=== PATIENT | female | born 1990 | race Caucasian/White ===

== ENCOUNTER → 2017-09-27 09:24 | Outpatient (CLI) | payer OTHER, SELFPAY ==
[2017-09-27 10:57] LABS: Absolute Lymphocyte Count 1.57 X10^3/ul (0.83-4.51); Absolute Neutrophil Count 5.5 X10^3/uL (2.0-7.7); Basophil# 0.01 X10^3/uL; Basophil% 0.1 % (0-1); Eosinophil# 0.02 X10^3/uL; Eosinophils% 0.3 % (0-5); Hematocrit 39.6 % (37-47); Hemoglobin 13.1 g/dl (12.0-15.0); Lymphocyte # 1.57 X10^3/ul (4.0); Lymphocyte % 20.8 % (19-41); Mean Corp Hgb Conc 33.1 g/gl (32-36); Mean Corpuscular Hgb 30.1 pg (27.0-32.0); Mean Platelet Vol. 9.6 fl (6.2-12.0); Monocyte# 0.43 X10^3/uL; Monocyte% 5.7 % (0-10); Neutrophil # 5.52 X10^3/uL (2.7-7.7); Platelet Count 350 K/mm3 (150-450); RBC Distribution Width CV 12.4 % (11.6-14.6); RBC Distribution Width SD 41.4 fl (35.1-43.9); Red Blood Count 4.35 M/mm3 (4.2-5.4); White Blood Count 7.6 K/mm3 (4.4-11.0)
[2017-09-27 11:01] LABS: POSITIVE COUNT NO; POSITIVE DIFFERENTIAL NO; POSITIVE MORPHOLOGY NO
[2017-09-27 11:23] LABS: Glucose Challenge Gest 1H 50g 128 mg/dL (70-140)
[2017-09-27 12:14] LABS: HIV - WCH Non-Reactive (Nonreactive)
[2017-09-29 03:07] LABS: HCV Quant. RNA PCR HCV Not Detected IU/mL (.)
[2017-09-29 10:15] LABS: HEPATITIS B SURFACE AG Negative (Negative)
[2017-10-04 03:47] LABS: Rapid Plasmin Reagin (RPR) NONREACTIVE (NONREACTIVE)
== END ==
PROVIDERS: Family Provider Family Medicine; PCP Family Medicine; Visit Provider Obstetrics & Gynecology
DX: Z34.90 Encounter for supervision of normal pregnancy, unspecified, unspecified trimester (principal)
CPT/HCPCS: 36415; 82950; 85025; 86592; 86703; 86762; 86850; 86900; 87340; 87522

== ENCOUNTER → 2017-09-27 18:56 | Outpatient (CLI) | payer OTHER, SELFPAY ==
[2017-09-27 22:37] LABS: Chlamydia Trachomatis by PCR Negative (Negative); Neisserai gonorrhoeae by PCR Negative (Negative); Probe Check PASS; Sample Adequacy Control PASS; Specimen Processing Control PASS
[2017-10-02 09:42] LABS: HPV Reflexed? NOT INDICATED
== END ==
PROVIDERS: Visit Provider Obstetrics & Gynecology
DX: Z34.90 Encounter for supervision of normal pregnancy, unspecified, unspecified trimester (principal); Z12.4 Encounter for screening for malignant neoplasm of cervix
CPT/HCPCS: 87086; 87491; 87591; 88175; G0145

== ENCOUNTER → 2017-10-25 | Outpatient (CLI) | payer OTHER, SELFPAY | END | disposition home or self-care (01) | PROVIDERS: Family Provider Family Medicine; PCP Family Medicine; Visit Provider Obstetrics & Gynecology | DX: Z31.5 Encounter for procreative genetic counseling (principal) | CPT/HCPCS: 36415 ==

== ENCOUNTER → 2018-02-14 12:23 | Outpatient (CLI) | payer OTHER, SELFPAY ==
[2018-02-14 13:06] LABS: Absolute Lymphocyte Count 1.86 X10^3/ul (0.83-4.51); Absolute Neutrophil Count 8.7 X10^3/uL (2.0-7.7); Basophil# 0.02 X10^3/uL; Basophil% 0.2 % (0-1); Eosinophil# 0.05 X10^3/uL; Eosinophils% 0.4 % (0-5); Hematocrit 33.1 % (37-47); Hemoglobin 10.9 g/dl (12.0-15.0); Lymphocyte # 1.86 X10^3/ul (4.0); Lymphocyte % 16.4 % (19-41); Mean Corp Hgb Conc 32.9 g/gl (32-36); Mean Corpuscular Hgb 31.7 pg (27.0-32.0); Mean Corpuscular Volume 96.2 fL (81-99); Mean Platelet Vol. 9.8 fl (6.2-12.0); Monocyte# 0.68 X10^3/uL; Neutrophil # 8.65 X10^3/uL (2.7-7.7); Neutrophil % 76.5 % (47-70); Platelet Count 340 K/mm3 (150-450); RBC Distribution Width CV 12.4 % (11.6-14.6); RBC Distribution Width SD 41.8 fl (35.1-43.9); Red Blood Count 3.44 M/mm3 (4.2-5.4); White Blood Count 11.3 K/mm3 (4.4-11.0)
[2018-02-14 13:07] LABS: POSITIVE COUNT NO; POSITIVE DIFFERENTIAL NO; POSITIVE MORPHOLOGY NO
[2018-02-14 13:28] LABS: Glucose Challenge Gest 1H 50g 121 mg/dL (70-140)
== END ==
PROVIDERS: Family Provider Family Medicine; PCP Family Medicine; Referring Provider Obstetrics & Gynecology; Visit Provider Obstetrics & Gynecology
DX: Z34.90 Encounter for supervision of normal pregnancy, unspecified, unspecified trimester (principal)
CPT/HCPCS: 36415; 82950; 85025

== ENCOUNTER → 2018-04-18 15:19 | Outpatient (CLI) | payer OTHER, SELFPAY ==
[2018-04-18 13:24] VITALS: BMI 38.4
== END ==
PROVIDERS: Family Provider Family Medicine; PCP Family Medicine; Referring Provider Obstetrics & Gynecology; Visit Provider Obstetrics & Gynecology
DX: Z34.90 Encounter for supervision of normal pregnancy, unspecified, unspecified trimester (principal)
CPT/HCPCS: 87081

== ENCOUNTER 2018-05-11 12:05 | Outpatient (CLI) | payer OTHER, SELFPAY ==
[2018-05-09 12:23] VITALS: BMI 38.4
[2018-05-11 12:29] VITALS: BMI 38.7
[2018-05-11 13:10] LABS: ROM Internal Control Test YES-OK TO RESULT pt. (Internal QC); ROM Patient Test Negative (Negative)
--- NOTE | 2018-05-14 00:47 | OB.TRI.NOTE ---
- Problem List (1) False labor Status: Acute History of Present Illness Date of Service: 05/11/18 Reason For Visit: R/O SROM History of Present Illness: co ctx questionable lof Allergies iodine Allergy (Verified 05/09/18 12:01) Other morphine Allergy (Verified 05/09/18 12:01) Other shellfish derived Allergy (Verified 05/09/18 12:01) Other - Pertinent Past Medical History Surgical History: Past Surgical History (Last Reviewed 05/09/18 @ 12:01 by Yen Davison) kidney abscess surgery Laboratory Studies: Laboratory Tests 05/11/18 Range/Units 12:30 Vag Amniotic Fld Detect Negative (Negative) NST - FHR Rate Baby A Baseline: 130 Variability:: Moderate Accelerations:: 15 x 15 Decelerations:: None NST Reactive:: Yes FHR Category:: Category I Uterine Activity:: irregular Impression/Plan false labor negative rom no cervical change dc home
== END 2018-05-11 14:30 | disposition home or self-care (01) ==
LOC: WPOUT 12:14 → WP 05-12 11:08
PROVIDERS: Family Provider Family Medicine; PCP Family Medicine; Visit Provider Obstetrics & Gynecology
DX: O47.9 False labor, unspecified (principal); Z3A.00 Weeks of gestation of pregnancy not specified
CPT/HCPCS: 59025; 59050; 84112; 99218; G0378

== ENCOUNTER 2018-05-17 14:20 | Inpatient (IN) | payer OTHER, SELFPAY ==
[2018-05-15 15:00] VITALS: BMI 39.9
[2018-05-17] MEDS: Lactated Ringers 1,000 ML 50 ML IV ×2 (14:45→18:04)
[2018-05-17 15:05] VITALS: BMI 44.7
[2018-05-17 15:26] LABS: Hematocrit 35.8 % (37-47); Hemoglobin 11.8 g/dl (12.0-15.0); Mean Corpuscular Hgb 30.6 pg (27.0-32.0); Platelet Count 314 K/mm3 (150-450); RBC Distribution Width CV 12.8 % (11.6-14.6); RBC Distribution Width SD 43.6 fl (35.1-43.9); Red Blood Count 3.85 M/mm3 (4.2-5.4); White Blood Count 8.7 K/mm3 (4.4-11.0)
[2018-05-17 15:35] LABS: Scan Indicated on CBC? Y/N NO
[2018-05-17] MEDS: Oxytocin 30 units/NS 500 ml 30 UNITS/500 ML IV.SOLN IV (16:01)
[2018-05-17] MEDS: fentaNYL-bupivacaine (epidural) 100 ML BAG EPIDURAL (17:47)
[2018-05-17] MEDS: Oxytocin 30 units/NS 500 ml 30 UNITS/500 ML IV.SOLN 334 UNITS IV (19:57)
[2018-05-17] MEDS: Oxytocin 30 units/NS 500 ml 30 UNITS/500 ML IV.SOLN 167 UNITS IV (20:27)
--- NOTE | 2018-05-17 21:34 | PCM.HP.OB ---
- Problem List (1) Term Status: Acute (2) Obesity affecting in third trimester Status: Acute Comment: nl 1 tm glucola, discussed healthy weight gain. (3) Status: Acute Qualifiers: Weeks of gestation: 39 weeks Qualified Code(s): Z3A.39 - 39 weeks gestation of Comment: genetic screening- NIPT normal. ntd carrier screening declined. anatomy scan normal. (4) Supervision of normal Status: Acute Qualifiers: Normal : other normal Trimester: third trimester Qualified Code(s): Z34.83 - Encounter for supervision of other normal , third trimester Comment: PRR VIJAY 05/16/18 girl- Sanjay Boyer Johny History Date of Admission: 05/17/18 Final VIJAY: 05/16/18 Gestational age: 40 Weeks and 1 Days History of this : This is a 27 year-old, at 40 weeks gestational age presents IOL term and favorable cervix. risks of induction were discussed with patient and she wishes to proced, her meyers score is 9. She denies any vb lof admitss good fm and irregular ctx. she has had an uncomplicated Surgical History: Surgical History (Last Reviewed 05/15/18 @ 15:00 by Yen Davison) kidney abscess surgery Allergies iodine Allergy (Verified 05/15/18 15:00) Other morphine Allergy (Verified 05/15/18 15:00) Other shellfish derived Allergy (Verified 05/15/18 15:00) Other Home Medications: Home Medications vitamin,calcium,cgjqvhhy-nbba-cohfl acid tablet 1 tab PO QDAY 09/27/17 Smoking Status: Never smoker Alcohol: None Number of Fetus(es): 1 Heart Tracin moderate variability reactive no decelerations category I tracing\ Edisto: regular History Past Pregnancies: Past Pregnancies Delivery Date Name GA/Weeks Outcome Route Weight Gender Labor Length Anesthesia Delivery Location Provider FOB 2009 Rosalind 39 iol term 6lb7o f 2 epi Labs: Mom's Labs & Results 05/17/18 05/17/18 14:45 14:45 WBC 8.7 RBC 3.85 L Hgb 11.8 L Hct 35.8 L MCV 93.0 MCH 30.6 MCHC 33.0 RDW 12.8 RDW Differential 43.6 Plt Count 314 MPV 10.0 Blood Type AB POSITIVE Antibody Screen NEGATIVE Course Did the patient receive Yes care? Labs Blood Type: AB RH: POSITIVE RPR/VDRL/Syphilis Nonreactive Rubella status Immune HbSAg Negative Date Done: 09/27/17 Chlamydia Negative Gonorrhea Negative HIV/AIDS Non-Reactive Group B Strep: Negative Current Obstetrical History Gestational Diabetes No Incompetent Cervix No Infertility No IUGR No Macrosomia No Hypertension/Pre-eclampsia No Placenta Previa/Abruption No PTL/PROM No Uterine anomaly No Oligohydramnios No Polyhydramnios No Multiple gestation No Past Medical History Asthma No Diabetes No Hypertension No Heart disease No Mitral valve prolapse No Neurologic/Seizure disorder/ No Migraines Kidney disease No Liver disease No Varicosities No Clotting disorders/Hx of DVT No Thyroid Dysfunction No Other medical diseases No Psychiatric disorders No Major trauma No Abnormal PAP smear No Sleep apnea No Mammogram in the last 2 years No Social History Marital Status: Alleged father Johny Hx Smoking No Smoking Status Never smoker Expected Delivery Method: Spontaneous Vaginal Review of Systems Constitutional: Denies: Fever, Malaise Eyes: Denies: Blurred vision, Vision Change HEENT: Denies: Head Aches, Visual Changes Cardiovascular: Denies: Chest Pain, Palpitations Respiratory: Denies: Cough, Shortness of Breath, Wheezing Gastrointestinal: Denies: Abdominal Pain, Diarrhea, Nausea, Vomiting Genitourinary: Denies: Dysuria, Hematuria Musculoskeletal: Denies: Joint Pain, Muscle pain Skin: Denies: Lesions, Rash Neurological: Denies: Blurred vision, Focal weakness, Headaches Psychiatric: Denies: Anxiety, Depression Endocrine: Denies: Heat/ Cold Intolerance Hematologic/ Lymphatic: Denies: Easy Bruising, Easy Bleeding Physical Exam General: Alert, Cooperative, No apparent distress HEENT: Atraumatic, Normocephalic. Negative for: Thyromegaly, Lymphadenopathy Cardiovascular: Regular rate Lungs: Normal air movement Abdomen: Soft, Non Tender, Gravid Neurological: Deep Tendon Reflexes 2+/4 and Symmetrical, Neuro grossly intact. Negative for: Clonus STUDENT SERVICES COUNSELOR: Normal external genitalia. Negative for: Vulvar lesions Estimated gestational size: Appropriate for gestational size Presentation: Cephalic Cervix Dilation (cm): 4.5 Station: -1 Effacement (%): 70 Assessment/Plan All Active Problems (Last Reviewed 05/15/18 @ 15:00 by Yen Still False labor (Acute) Term (Acute) Obesity affecting in third trimester (Acute) (Acute) Supervision of normal (Acute) screening encounter (Resolved) BMI 35.0-35.9,adult (Resolved) This is a 27 year-old, at 40 weeks gestational age presents IOL term maternal request Patient presents IOL, plan expectant management for , pitocin/AROM done- clear Pain management: plans epidural GBS negative Management of any complications: none I have reviewed the [facility] and made any clinically relevant updates.
--- NOTE | 2018-05-17 21:34 | PCM.OB.VAG ---
- Problem List (1) Term Status: Acute (2) Obesity affecting in third trimester Status: Acute Comment: nl 1 tm glucola, discussed healthy weight gain. (3) Status: Acute Qualifiers: Weeks of gestation: 39 weeks Qualified Code(s): Z3A.39 - 39 weeks gestation of Comment: genetic screening- NIPT normal. ntd carrier screening declined. anatomy scan normal. (4) Supervision of normal Status: Acute Qualifiers: Normal : other normal Trimester: third trimester Qualified Code(s): Z34.83 - Encounter for supervision of other normal , third trimester Comment: PRR VIJAY 05/16/18 girl- Sanjay Boyer Johny Vaginal Delivery Maternal Presentation: Elective Induction Method of Induction: Pitocin, Amniotomy Amniotic Membrane Rupture Type: Artificial Amniotic Fluid Description: Clear Final VIJAY: 05/16/18 Gestational age: 40 Weeks and 1 Days Date of Procedure: 05/17/18 Pre-Operative Diagnosis: iol social Post-Operative Diagnosis: same Surgery/ Procedure Performed: Spontaneous Vaginal Delivery Type of Anesthesia: Epidural Description of Procedure: Patient began pushing and delivered the head in the ARIC presentation. The head was delivered atraumatically. The anterior and posterior shoulders delivered after a 15 second mild shoulder dystocia that was resolved with position change and daryl, and without complication the rest of the infant and the infant was placed on the maternal abdomen. Delayed cord clamping was employed for approximately 60 seconds. Cord was clamped and cut and gentle traction was applied to the cord and the placenta delivered spontaneously immediately following it was noted to be intact with three-vessel cord. The perineum and vagina were inspected and noted to have no laceration. Patient and infant tolerated delivery well. A gender: Female Episiotomy Description: None Laceration: None Medications given after delivery: IV Pitocin Complications: - - mild shoulder dystocia- safe for future as long as EFW not any greater than present weight
[2018-05-18 02:51] VITALS: BP 112/63; PULSE 97; RESP 18; TEMP 36.6
--- NOTE | 2018-05-18 02:55 | NURSING ---
0251- pt states she is feeling a little burning w voiding, enc use of steffen bottle while voiding to help ease
[2018-05-18] MEDS: Naproxen 250 MG Tablet PO ×2 (07:06→16:00)
[2018-05-18 08:00] VITALS: BP 111/62; PULSE 79; RESP 16; TEMP 36.4; O2SAT 97
[2018-05-18 12:25] VITALS: BP 124/78; PULSE 78; RESP 18; TEMP 36.8; O2SAT 99
--- NOTE | 2018-05-18 13:27 | PCM.PN.OB ---
Patient Problems: Active and Suspected Problems (Last Reviewed 05/15/18 @ 15:00 by Yen Davison) Term (Acute) Subjective: doing well no complaints pain controlled no CP SOB N V ambulating well tolerating po lochia moderate, going well - Physical Exam General: Alert, Oriented x3 Vital Signs Temp Pulse Resp BP Pulse Ox 98.2 F 78 18 124/78 H 99 05/18/18 12:25 05/18/18 12:25 05/18/18 12:25 05/18/18 12:25 05/18/18 12:25 Oxygen Delivery Method Room Air Weight: 234 lb 12.677 oz Body Mass Index (BMI) 44.7 Intake and Output for Last 24 Hours 05/16/18 05/17/18 05/18/18 23:59 23:59 23:59 Intake Total 1704 / 1704 Output Total 650 / 650 300 / 300 Balance 1054 / 1054 -300 / -300 Laboratory Tests Past 24 Hrs 05/17/18 05/17/18 14:45 14:45 WBC 8.7 RBC 3.85 L Hgb 11.8 L Hct 35.8 L MCV 93.0 MCH 30.6 MCHC 33.0 RDW 12.8 RDW Differential 43.6 Plt Count 314 MPV 10.0 Blood Type AB POSITIVE Antibody Screen NEGATIVE Medical Necessity - Tobacco Use Smoking Status: Never smoker Assessment/Plan All Active Problems (Last Reviewed 05/15/18 @ 15:00 by Yen Davison) False labor (Acute) Term (Acute) Obesity affecting in third trimester (Acute) (Acute) Supervision of normal (Acute) screening encounter (Resolved) BMI 35.0-35.9,adult (Resolved) s/p PPD # 1 1. routine post delivery care 2. breast feeding- support given 3. rh positive 4. rubella immune
[2018-05-18 15:50] VITALS: BP 122/80; PULSE 85; RESP 18; TEMP 36.7; O2SAT 99
[2018-05-18 19:46] VITALS: BP 119/77; PULSE 93; RESP 16; TEMP 36.9; O2SAT 99
--- NOTE | 2018-05-18 21:38 | PCM.DCVAG ---
Discharge Diet: No Restrictions Discharge Activity: Return to Normal Activity, May not drive while taking narcotic pain medications., May Shower May resume sexual activity in: 4-6 weeks Call your doctor if your incision/area has: Continuous Slow Oozing, Sudden Increased Bleeding, Increased Pain/ Swelling, Increased Redness, Foul Smelling Discharge Additional Instructions: If you experience any of the following, contact your healthcare provider. Bleeding that soaks a pad every hour for 2 hours Fever 100.4 or higher Unrelieved incision or abdominal pain Swelling, redness, discharge or bleeding from your incision or episiotomy site Your incision begins to separate Problems urinating (including inability to urinate or burning while urinating). Visual changes Severe headache Flu-like symptoms Pain or redness in one of both of your breasts Pain, warmth, tenderness or swelling in your legs, especially the calf area Frequent nausea and vomiting Symptoms of depression or anxiety If you experience any of the following, call 911 or go to the nearest Emergency Room. Chest pain Problems breathing Seizure activity Partial or complete paralysis of a body part, slurred speech, weakness or drooping of the face, or a sudden inability to walk or hold your balance Allergies/Adverse Reactions: Allergies iodine Allergy (Verified 05/15/18 15:00) Other morphine Allergy (Verified 05/18/18 08:07) Other cardiac arrest - as infant shellfish derived Allergy (Verified 05/15/18 15:00) Other Medications to take at Discharge vitamin,calcium,uheezdql-ezhn-lsbju acid tablet 1 tab PO QDAY 09/27/17 Please Follow Up With: Mari Gay MD - [phone] When: Call to make an appointment with your doctor in 6 weeks. If you had elevated Blood pressure or 4th degree laceration you will need to be seen in 2 weeks. Primary Care Physician: Chemo Roque MD [Primary Care Provider] - Test Results: Test results from this visit will be discussed in further detail at your follow-up appointment, if applicable.
--- NOTE | 2018-05-18 21:39 | DCINST_ITS ---
Discharge Diet: No Restrictions Discharge Activity: Return to Normal Activity, May not drive while taking narcotic pain medications., May Shower May resume sexual activity in: 4-6 weeks Call your doctor if your incision/area has: Continuous Slow Oozing, Sudden Increased Bleeding, Increased Pain/ Swelling, Increased Redness, Foul Smelling Discharge Additional Instructions: If you experience any of the following, contact your healthcare provider. * Bleeding that soaks a pad every hour for 2 hours * Fever 100.4 or higher * Unrelieved incision or abdominal pain * Swelling, redness, discharge or bleeding from your incision or episiotomy site * Your incision begins to separate * Problems urinating (including inability to urinate or burning while urinating). * Visual changes * Severe headache * Flu-like symptoms * Pain or redness in one of both of your breasts * Pain, warmth, tenderness or swelling in your legs, especially the calf area * Frequent nausea and vomiting * Symptoms of depression or anxiety If you experience any of the following, call 911 or go to the nearest Emergency Room. * Chest pain * Problems breathing * Seizure activity * Partial or complete paralysis of a body part, slurred speech, weakness or drooping of the face, or a sudden inability to walk or hold your balance Allergies/Adverse Reactions: Allergies iodine Allergy (Verified 05/15/18 15:00) Other morphine Allergy (Verified 05/18/18 08:07) Other cardiac arrest - as shellfish derived Allergy (Verified 05/15/18 15:00) Other Medications to take at Discharge vitamin,calcium,xzholpjz-upbp-oapdu acid tablet 1 tab PO QDAY 09/27/17 Please Follow Up With: Mari Gay MD - [phone] When: Call to make an appointment with your doctor in 6 weeks. If you had elevated Blood pressure or 4th degree laceration you will need to be seen in 2 weeks. Primary Care Physician: Chemo Roque MD [Primary Care Provider] - Test Results: Test results from this visit will be discussed in further detail at your follow- up appointment, if applicable.
[2018-05-19 02:20] VITALS: BP 111/67; PULSE 81; RESP 20; TEMP 36.4
--- NOTE | 2018-05-19 07:43 | PCM.PN.OB ---
Patient Problems: Active and Suspected Problems (Last Reviewed 05/15/18 @ 15:00 by Yen Davison) Term (Acute) Subjective: Doing well. No CP, SOB. Baby's bilirubin trending down so plans home today. - Physical Exam General: Alert, Oriented x3 Abdomen: Soft, Non Tender, - - FF below U Vital Signs Temp Pulse Resp BP Pulse Ox 97.6 F L 81 20 H 111/67 99 05/19/18 02:20 05/19/18 02:20 05/19/18 02:20 05/19/18 02:20 05/18/18 19:46 Oxygen Delivery Method Room Air Weight: 234 lb 12.677 oz Body Mass Index (BMI) 44.7 Intake and Output for Last 24 Hours 05/17/18 05/18/18 05/19/18 23:59 23:59 23:59 Intake Total 1704 / 1704 Output Total 650 / 650 300 / 300 Balance 1054 / 1054 -300 / -300 Medical Necessity - Tobacco Use Smoking Status: Never smoker Assessment/Plan All Active Problems (Last Reviewed 05/15/18 @ 15:00 by Yen Davison) False labor (Acute) Term (Acute) Obesity affecting in third trimester (Acute) (Acute) Supervision of normal (Acute) screening encounter (Resolved) BMI 35.0-35.9,adult (Resolved) PPD #2: Routine care. . Home today
[2018-05-19 08:25] VITALS: BP 117/70; PULSE 80; RESP 16; TEMP 36.3
--- NOTE | 2018-05-29 13:25 | NURSING ---
Follow up phone call left voice mail
== END 2018-05-19 10:00 | disposition home or self-care (01) | DRG 807 ==
PROVIDERS: Admitting Provider Obstetrics & Gynecology; Family Provider Family Medicine; PCP Family Medicine; Referring Provider Obstetrics & Gynecology; Visit Provider Obstetrics & Gynecology
DX: O66.0 Obstructed labor due to shoulder dystocia (principal); Z37.0 Single live birth; O99.214 Obesity complicating childbirth; Z3A.40 40 weeks gestation of pregnancy
CPT/HCPCS: 59025; 59050; 85027; 86850; 86900; 99218; J7120; G0378

== ENCOUNTER → 2019-12-14 14:43 | Outpatient (CLI) | payer OTHER, SELFPAY ==
[2019-12-14 11:51] VITALS: BMI 44.7
[2019-12-14 17:35] LABS: Amphetamine Urine VISTA NEGATIVE (<1000 ng/mL); Barbiturate Urine VISTA NEGATIVE (< 200 ng/mL); Benzodiazepine Urine VISTA NEGATIVE (< 200 ng/mL); Cocaine Urine VISTA NEGATIVE (< 300 ng/mL); Ecstacy Urine VISTA NEGATIVE (< 500 ng/mL); Methadone Urine VISTA NEGATIVE (< 300 ng/mL); PCP Urine VISTA NEGATIVE (< 25 ng/mL); THC Urine VISTA NEGATIVE (< 50 ng/mL); Vista UDS pH Range 5
[2019-12-17 09:04] LABS: Chlamydia By Nucleic Acid AMP Negative (Negative)
[2019-12-17 09:17] LABS: Gonococcus By Nucleic Acid AMP Negative (Negative)
== END ==
PROVIDERS: PCP Family Medicine; Referring Provider Obstetrics & Gynecology; Visit Provider Obstetrics & Gynecology
DX: Z34.90 Encounter for supervision of normal pregnancy, unspecified, unspecified trimester (principal)
CPT/HCPCS: 80307; 87086; 87088; 87491; 87591

== ENCOUNTER → 2020-01-07 11:33 | Outpatient (CLI) | payer OTHER, SELFPAY ==
[2019-12-14 11:51] VITALS: BMI 44.7
[2020-01-07 12:47] LABS: Absolute Neutrophil Count 6.3 X10^3/uL (2.0-7.7); Basophil# 0.04 X10^3/uL; Basophil% 0.4 % (0-1); Eosinophils% 1.1 % (0-5); Hematocrit 37.9 % (37-47); Hemoglobin 12.6 g/dL (12.0-15.0); Lymphocyte % 22.2 % (19-41); Mean Corp Hgb Conc 33.2 g/dL (32-36); Mean Corpuscular Hgb 31.1 pg (27.0-32.0); Mean Corpuscular Volume 93.6 fL (81-99); Mean Platelet Vol. 10.1 fl (6.2-12.0); Monocyte# 0.94 X10^3/uL; Monocyte% 9.9 % (0-10); NRBC Flagged by Analyzer 0 % (0-5); Neutrophil # 6.27 X10^3/uL (2.7-7.7); Neutrophil % 66.2 % (47-70); Platelet Count 354 K/mm3 (150-450); RBC Distribution Width CV 12.3 % (11.6-14.6); RBC Distribution Width SD 42.5 fl (35.1-43.9); Red Blood Count 4.05 M/mm3 (4.2-5.4); White Blood Count 9.5 K/mm3 (4.4-11.0)
[2020-01-07 13:30] LABS: Glucose Challenge Gest 1H 50g 92 mg/dL (70-140)
[2020-01-07 14:00] LABS: HIV - WCH Non-Reactive (Nonreactive); Hepatitis B Surface Antigen Non-Reactive (Nonreactive); Hepatitis C Antibody Non-Reactive (Nonreactive); Rubella IgG 24.9 IU/mL
[2020-01-14 02:04] LABS: Rapid Plasmin Reagin (RPR) NONREACTIVE (NONREACTIVE)
== END ==
PROVIDERS: Referring Provider Obstetrics & Gynecology; Visit Provider Obstetrics & Gynecology
DX: Z34.90 Encounter for supervision of normal pregnancy, unspecified, unspecified trimester (principal)
CPT/HCPCS: 36415; 82950; 85025; 86592; 86703; 86762; 86803; 86850; 86900; 86901; 87340

== ENCOUNTER → 2020-01-11 10:15 | Outpatient (CLI) | payer OTHER, SELFPAY ==
[2020-01-11 09:49] VITALS: BMI 44.7
[2020-01-11 11:19] LABS: NATERA MAILED SPECIMEN
== END ==
PROVIDERS: Referring Provider Obstetrics & Gynecology; Visit Provider Obstetrics & Gynecology
DX: Z34.90 Encounter for supervision of normal pregnancy, unspecified, unspecified trimester (principal)
CPT/HCPCS: 36415

== ENCOUNTER → 2020-04-19 10:52 | Outpatient (CLI) | payer OTHER, SELFPAY ==
[2020-03-25 13:11] VITALS: BMI 37.3
[2020-04-19 11:34] LABS: Absolute Lymphocyte Count 1.53 X10^3/uL (0.83-4.51); Absolute Neutrophil Count 6.7 X10^3/uL (2.0-7.7); Basophil# 0.03 X10^3/uL; Basophil% 0.3 % (0-1); Eosinophil# 0.03 X10^3/uL; Eosinophils% 0.3 % (0-5); Hematocrit 34.7 % (37-47); Hemoglobin 11.1 g/dL (12.0-15.0); Lymphocyte # 1.53 X10^3/ul (4.0); Lymphocyte % 17.2 % (19-41); Mean Corpuscular Hgb 31.6 pg (27.0-32.0); Mean Corpuscular Volume 98.9 fL (81-99); Mean Platelet Vol. 9.8 fl (6.2-12.0); Monocyte# 0.59 X10^3/uL; Monocyte% 6.6 % (0-10); NRBC Flagged by Analyzer 0 % (0-5); Neutrophil # 6.68 X10^3/uL (2.7-7.7); Platelet Count 299 K/mm3 (150-450); RBC Distribution Width CV 12.4 % (11.6-14.6); RBC Distribution Width SD 45.1 fl (35.1-43.9); Red Blood Count 3.51 M/mm3 (4.2-5.4); White Blood Count 8.9 K/mm3 (4.4-11.0)
[2020-04-19 11:58] LABS: Glucose Challenge Gest 1H 50g 98 mg/dL (70-140)
== END ==
PROVIDERS: Referring Provider Obstetrics & Gynecology; Visit Provider Obstetrics & Gynecology
DX: O09.90 Supervision of high risk pregnancy, unspecified, unspecified trimester (principal); Z3A.00 Weeks of gestation of pregnancy not specified; Z13.1 Encounter for screening for diabetes mellitus
CPT/HCPCS: 36415; 82950; 85025

== ENCOUNTER → 2020-06-17 12:45 | Outpatient (CLI) | payer OTHER, SELFPAY ==
[2020-06-17 11:01] VITALS: BMI 39.9
== END ==
PROVIDERS: Referring Provider Obstetrics & Gynecology; Visit Provider Obstetrics & Gynecology
DX: O09.90 Supervision of high risk pregnancy, unspecified, unspecified trimester (principal); Z3A.00 Weeks of gestation of pregnancy not specified
CPT/HCPCS: 87081

== ENCOUNTER → 2020-06-29 12:27 | Outpatient (CLI) | payer OTHER, SELFPAY ==
[2020-06-28 11:02] VITALS: BMI 37.3
[2020-06-29 12:48] LABS: Protein, Urine (Random) 27.7 mg/dL (<11.9); Protein:Creat Ratio 119 mg/g CRE (0-200)
[2020-06-29 13:30] LABS: Absolute Neutrophil Count 7.6 X10^3/uL (2.0-7.7); Basophil# 0.03 X10^3/uL; Basophil% 0.3 % (0-1); Eosinophil# 0.06 X10^3/uL; Eosinophils% 0.6 % (0-5); Hematocrit 33.8 % (37-47); Hemoglobin 11.2 g/dL (12.0-15.0); Mean Corp Hgb Conc 33.1 g/dL (32-36); Mean Corpuscular Hgb 31.1 pg (27.0-32.0); Mean Corpuscular Volume 93.9 fL (81-99); Mean Platelet Vol. 9.3 fl (6.2-12.0); Monocyte# 0.89 X10^3/uL; Monocyte% 8.4 % (0-10); NRBC Flagged by Analyzer 0 % (0-5); Platelet Count 315 K/mm3 (150-450); RBC Distribution Width CV 11.8 % (11.6-14.6); RBC Distribution Width SD 40.7 fl (35.1-43.9); White Blood Count 10.6 K/mm3 (4.4-11.0)
[2020-06-29 13:46] LABS: ALB/GLOB Ratio 0.6 RATIO (0.9-2.4); AST(SGOT) 9 U/L (15-37); Alanine Aminotransfer ALT/SGPT 14 U/L (13-56); Albumin, Serum 2.7 g/dL (3.2-5.0); Alkaline Phosphatase 85 U/L (45-117); Anion Gap 7 (5-15); BUN 9 mg/dL (7-18); BUN/Creat Ratio 13.4 RATIO (10-20); Chloride 106 mmol/L (98-107); Creatinine, Serum 0.67 mg/dL (0.55-1.02); EST Glomerular Filtration Rate 111 mL/min (>60); Est Glom Filt Rate - Afr Amer 135 mL/min (>60); Globulin 4.5 g/dL (2.2-4.2); Glucose 83 mg/dL (74-106); Potassium 3.9 mmol/L (3.5-5.1); Protein, Total 7.2 g/dL (6.4-8.2); Sodium Level 137 mmol/L (136-145)
== END ==
LOC: LABSPEC 12:27 → LAB 13:16
PROVIDERS: Referring Provider Obstetrics & Gynecology; Visit Provider Obstetrics & Gynecology
DX: Z34.90 Encounter for supervision of normal pregnancy, unspecified, unspecified trimester (principal)
CPT/HCPCS: 36415; 80053; 82570; 84156; 85025

== ENCOUNTER 2020-07-01 13:50 | Inpatient (IN) | payer OTHER, SELFPAY ==
[2020-07-01] VITALS (8 sets, daily range): BP systolic 103–122; BP diastolic 60–73; PULSE 82–102; TEMP 36.8–37.1; O2SAT 97–99; BMI 40.1
[2020-07-01 17:32] LABS: Absolute Lymphocyte Count 2.19 X10^3/uL (0.83-4.51); Absolute Neutrophil Count 8.3 X10^3/uL (2.0-7.7); Basophil# 0.03 X10^3/uL; Basophil% 0.3 % (0-1); Eosinophil# 0.06 X10^3/uL; Eosinophils% 0.5 % (0-5); Hematocrit 31.9 % (37-47); Hemoglobin 10.6 g/dL (12.0-15.0); Lymphocyte # 2.19 X10^3/ul (4.0); Lymphocyte % 18.7 % (19-41); Mean Corp Hgb Conc 33.2 g/dL (32-36); Mean Corpuscular Hgb 31.5 pg (27.0-32.0); Mean Corpuscular Volume 94.7 fL (81-99); Mean Platelet Vol. 9.6 fl (6.2-12.0); Monocyte# 1.02 X10^3/uL; Monocyte% 8.7 % (0-10); NRBC Flagged by Analyzer 0 % (0-5); Neutrophil # 8.33 X10^3/uL (2.7-7.7); Platelet Count 296 K/mm3 (150-450); RBC Distribution Width CV 11.8 % (11.6-14.6); RBC Distribution Width SD 40.9 fl (35.1-43.9); Red Blood Count 3.37 M/mm3 (4.2-5.4); White Blood Count 11.7 K/mm3 (4.4-11.0)
[2020-07-01] MEDS: 0.9% Normal Saline Single 100 ML IV.SOLN. INTRA-UTER (20:26)
[2020-07-01] MEDS: Lactated Ringers 1,000 ML 50 ML IV (20:27)
[2020-07-01] MEDS: Oxytocin 30 units/NS 500 ml 30 UNITS/500 ML IV.SOLN IV (20:30)
[2020-07-02] VITALS (50 sets, daily range): BP systolic 103–129; BP diastolic 58–87; PULSE 71–105; RESP 16–18; TEMP 36.3–37.2; O2SAT 97–100
--- NOTE | 2020-07-02 01:30 | HP.PCM_ITS ---
- Problem List (1) Encounter for induction of labor Status: Acute (2) 36 weeks gestation of Status: Acute Comment: GBS negative. electronic covid test ordered 06/17/20 (scheduled 07/01/20 at 1420) (3) H/O shoulder dystocia in prior , currently Status: Acute Comment: mild. recommend delivery by 39 weeks. (4) Depression affecting Status: Acute Comment: no meds, encouraged counseling (5) Status: Acute Qualifiers: Comment: low risk decline carrier and declined ntd screening. Anatomy nl (6) Supervision of high-risk Status: Acute Qualifiers: Comment: PRR VIJAY 07/15/20 PC Rosalind Grace Johny (7) Oligohydramnios Status: Acute Comment: plan IOL pit/fb. epi PRN. GBS neg History and Physical Date of Admission: 07/01/20 Intake Vital Signs 07/01/20 Height 5 ft 4 in 07/01/20 Weight: 234 lb 07/01/20 BMI 40.1 07/01/20 BP 126/70 H Intake Visit Reasons: 38WK OB Community Pharmacist Required: No Is patient in pain?: No Allergies iodine Allergy (Verified 07/01/20 14:20) Other morphine Allergy (Verified 07/01/20 14:20) Other shellfish derived Allergy (Verified 07/01/20 14:20) Other Medications prenat.vits,porsche,hnw-eokq-igdlz 1 tab PO QDAY 09/27/17 [History Confirmed 07/01/20] Last Menstral Period: 10/09/19 Zika: Zika virus screening: Negative : No PFSH PFSH Surgical History kidney abscess surgery (Acute) Family History Grandfather Heart disease Father Heart disease Social History (Updated 07/02/20 @ 01:[address] Mari Gay MD) Smoking Status: Never smoker alcohol intake: former substance use type: does not use caffeine: Yes what type of physical activity do you participate in: walking seatbelt use: always do you feel safe at home: Yes additional social history: [employer] Patient works at [employer] Pregancy History 3 Elective abortions Hx Para 2 Spontaneous abortions Hx # Term Pregnancies Ectopic pregnancies Hx # Pregnancies Multiple births # of living children 2 Past Pregnancies Del. Date Name GA/Weeks Outcome Route Bth Weight Infant Gen Labor Lgth Anesthesia Del Locatn Provider FOB Unknown 2009 Rosalind 40 live - full term 6lbs 7oz Female Lang 05/17/18 Deepa Hidalgo 40 live - full term 8lbs 13.8oz Female epidural [facility] Johny HPI 38WK OB : Details: BELINDA ROMERO is a 30 year old who presents for routine OB visit. upon evaluation patient was diagnosed with oligohydramnios with an JAYNA of 1 cm. The decision was made for IOL. OB Visit VIJAY Calculator Estimated Delivery Date Method Current WG Current Estimate 07/15/20 LMP (Certain) 38w 1d Other Estimates 07/16/20 Ultrasound #1 38w 0d Expected Delivery Route/Plan Labor Preferences- CB/BF classes: no labor support person: Johny labor intervention preferences: open to standard interventions pain management options preferred: epidural cut cord/dad catch: cord : [] PP control planned: [] discussed possible routes of delivery and associated risks: [] special requests: [] Specific Issue/Plans flu vaccine: given tdap vaccine: given rhogam: na LARC form signed: declined movement and labor precautions reviewed. Problem list reviewed and updated with the most current plan of care details and appropriate orders placed. Relevant counseling for the gestational age provided. Continue routine care and follow up unless otherwise noted in visit notes/problem list details Initial Weight: 205 lb Date EGA Weight BP Urine Prot Glucose FHR FuHt Pres Dilation Effaced St Visit Note 12/14/19 9w 3d 208 lb (+3 lb) 120/84 170 SM- CRL 2 cm cons with LMP 01/11/20 13w 3d 207 lb (+2 lb) 104/80 Negative Negative 157 GP - no cramping, LOF, VB. Genetic testing today. Anatomy with cMFM ordered. 02/08/20 17w 3d 209 lb 2 oz (+4 lb 2 oz) 116/78 Negative Negative 153 MH-NO VB, LOF. Starting to feel flutters. Low risk NIPT. Nausea gone. 03/25/20 24w 0d 217 lb 8 oz (+12 lb 8 oz) 110/72 Negative Negative 145 24 SM- no vb lof good fm no reuglar ctx, fu anatomy scan 04/22/20 28w 0d 223 lb 8 oz (+18 lb 8 oz) 108/80 Negative Negative 155 28 GP - no ctx, LOF, VB, DFM, ctx. 28w labs reviewed and are normal. 05/06/20 30w 0d 225 lb (+20 lb) 114/80 140 30 GP - no LOF, VB, DFM, ctx. LARC form signed. 05/20/20 32w 0d 228 lb (+23 lb) 106/72 Negative Negative 140 32 SM- no vb lof good fm no regular ctx 06/03/20 34w 0d 232 lb (+27 lb) 110/82 Negative Negative 140 34 SM- no vb lof good fm no regular ctx 06/17/20 36w 0d 232 lb 6 oz (+27 lb 6 oz) 102/72 Negative Negative 150 36 Cephalic 1 50 -3 GP - no LOF, VB, DFM, ctx. Discussed labor preferences. GBS done today. 06/24/20 37w 0d 110/84 150 36 Cephalic 1 50 -3 SM- no vb lof good fm no regular ctx 07/01/20 38w 0d 234 lb (+29 lb) 126/70 Negative Negative 145 35 Cephalic 1 50 -3 SM- no vb questionable LOF, good fm, decreased fundal height- jayna done and 1 cm ACOG First Trimester First Trimester: Desire for , Alcohol, Tobacco Cessation, Illicit/Recreational Drug/Substance Use, Intimate Partner Violence, Barriers to care, Unstable Housing, Communication Barriers, Environmental/Work Hazards, Anticipated Course of Care, Toxoplasmosis Precations, Use of Any medications, Sexual activity, Exercise, Dental Care, Sauna/Hot tub use, Seat Belt use, Childbirth classes/Hospital facilities, , Travel, Indications for US and Screening for Aneuploidy Second Trimester Second Trimester: Signs and Symptoms of Labor, Selecting a care provider, Reproductive Life Planning, Care Planning, Tobacco Cessation, Depression/Anxiety and Intimate Partner Violence Third Trimester Third Trimester: Pain Management Plans, Labor support person(s), Immediate Larc and Movement Monitoring; discussed Trial of Labor after Counseling or discussed Circumcision preference Diagnostics Diagnostics Diagnostics Blood Type AB POSITIVE 07/01/20 Antibody Screen NEGATIVE 07/01/20 Glucose 1 Hr 50 gm 98 mg/dL (70-140) 04/19/20 Hgb 10.6 g/dL (12.0-15.0) L 07/01/20 Hct 31.9 % (37-47) L 07/01/20 Details: HIV: Urine Culture: Sequential Screen: NIPT Screen: ROS Const Reports system reviewed and no additional complaints, except as docu Card Reports system reviewed and no additional complaints, except as docu Resp Reports system reviewed and no additional complaints, except as docu GI Reports system reviewed and no additional complaints, except as docu, Reports nausea Reports system reviewed and no additional complaints, except as docu Musc Reports system reviewed and no additional complaints, except as docu Exam Const General: cooperative, healthy appearing, comfortable, anxious HENMT Head: normal to inspection Nose: external nose normal Face and sinus: normal facial exam Neck Neck: normal visual inspection, full ROM, no lymphadenopathy Thyroid: thyroid normal Chest Chest palpation & inspection: normal inspection of the chest Resp Effort & Inspection: normal respiratory effort GI Inspection: normal to inspection Palpation: soft, other (gravid uterus) Other: infant vertex and appropriate size for gestational age Other: Cervical Exam: Extrem General: pedal edema Results POC Urinalysis 2 Dip (Clinic) Office Urine Glucose Negative Last Edit by Judy Foss on 07/01/20 11:42 Office Urine Protein Negative Last Edit by Judy Foss on 07/01/20 11:42 Assessment & Plan Problems 1. Oligohydramnios O41.00X0 plan IOL pit/fb. epi PRN. GBS neg 2. 36 weeks gestation of Z3A.36 GBS negative. electronic covid test ordered 06/17/20 (scheduled 07/01/20 at 1420) 3. H/O shoulder dystocia in prior , currently O09.299 mild. recommend delivery by 39 weeks. 4. Depression affecting O99.340; F32.9 no meds, encouraged counseling 5. Z34.90 low risk decline carrier and declined ntd screening. Anatomy nl 6. Supervision of high-risk O09.90 PRR VIJAY 07/15/20 Rosalind Laboy Johny
[2020-07-02] MEDS: Lactated Ringers 500 ML 999 ML IV (01:45)
[2020-07-02] MEDS: Lactated Ringers 1,000 ML 200 ML IV (02:13)
[2020-07-02] MEDS: fentaNYL-bupivacaine (epidural) 100 ML BAG EPIDURAL (03:10)
[2020-07-02] MEDS: Oxytocin 30 units/NS 500 ml 30 UNITS/500 ML IV.SOLN 334 UNITS IV (04:42)
[2020-07-02] MEDS: Methylergonovine 0.2 MG/ML Ampul IM (05:30)
--- NOTE | 2020-07-02 05:52 | PCM.OPRPT ---
Problem List (1) Encounter for induction of labor Status: Acute (2) 36 weeks gestation of Status: Acute Comment: GBS negative. electronic covid test ordered 06/17/20 (scheduled 07/01/20 at 1420) (3) H/O shoulder dystocia in prior , currently Status: Acute Comment: mild. recommend delivery by 39 weeks. (4) Depression affecting Status: Acute Comment: no meds, encouraged counseling (5) Status: Acute Qualifiers: Comment: low risk decline carrier and declined ntd screening. Anatomy nl (6) Supervision of high-risk Status: Acute Qualifiers: Comment: PRR VIJAY 07/15/20 PC Rosalind Grace Johny (7) Oligohydramnios Status: Acute Comment: plan IOL pit/fb. epi PRN. GBS neg Vaginal Delivery Maternal Presentation: Medically Indicated Induction iol oligo 38 Amniotic Membrane Rupture Type: Artificial Amniotic Fluid Description: Clear Final VIJAY: 07/15/20 Gestational age: 38 Weeks and 1 Days Date of Procedure: 07/02/20 Pre-Operative Diagnosis: iol oligo Post-Operative Diagnosis: same Surgery/ Procedure Performed: Spontaneous Vaginal Delivery Type of Anesthesia: Epidural Description of Procedure: Patient began pushing and delivered the head in the ARIC presentation. The head was delivered atraumatically . The anterior and posterior shoulders delivered without complication followed by the rest of the and the infant was placed on the maternal abdomen. Delayed cord clamping was employed for approximately 60 seconds. Cord was clamped and cut and gentle traction was applied to the cord and the placenta delivered spontaneously immediately following it was noted to be intact with three-vessel cord. The perineum and vagina were inspected and noted to have no laceration. EBL was 50 cc. Patient and infant tolerated delivery well. Presentation: ARIC Placental Delivery Description: Spontaneous Placenta Disposition: [facility] Cord Vessel Description: 3 Vessels Cord Entanglement: None Estimated Blood Loss: 50 Infant A gender: Female Episiotomy Description: None Laceration: None Medications given after delivery: IV Pitocin Complications: None Multi Select Codes - Urinary/Genital Urinary/Genital CPT Codes: 19062 Vaginal Delivery [facility]
--- NOTE | 2020-07-02 05:54 | DCINST_ITS ---
Discharge Diet: No Restrictions Discharge Activity: Return to Normal Activity, May not drive while taking narcotic pain medications., May Shower May resume sexual activity in: 4-6 weeks Call your doctor if your incision/area has: Continuous Slow Oozing, Sudden Increased Bleeding, Increased Pain/ Swelling, Increased Redness, Foul Smelling Discharge Additional Instructions: If you experience any of the following, contact your healthcare provider. * Bleeding that soaks a pad every hour for 2 hours * Fever 100.4 or higher * Unrelieved incision or abdominal pain * Swelling, redness, discharge or bleeding from your incision or episiotomy site * Your incision begins to separate * Problems urinating (including inability to urinate or burning while urinating). * Visual changes * Severe headache * Flu-like symptoms * Pain or redness in one of both of your breasts * Pain, warmth, tenderness or swelling in your legs, especially the calf area * Frequent nausea and vomiting * Symptoms of depression or anxiety If you experience any of the following, call 911 or go to the nearest Emergency Room. * Chest pain * Problems breathing * Seizure activity * Partial or complete paralysis of a body part, slurred speech, weakness or drooping of the face, or a sudden inability to walk or hold your balance Allergies/Adverse Reactions: Allergies iodine Allergy (Verified 07/01/20 14:20) Other morphine Allergy (Verified 07/01/20 14:20) Other cardiac arrest - as infant shellfish derived Allergy (Verified 07/01/20 14:20) Other Medications to take at Discharge prenat.vits,porsche,[id number] 1 tab PO QDAY 09/27/17 Naproxen [Naprosyn] 250 - 500 mg PO Q8H PRN PRN #30 tab 07/02/20 The following prescriptions were given: Naproxen [Naprosyn] 250 - 500 mg PO Q8H PRN PRN #30 tab PRN Reason: MILD PAIN Transmission Status: Pending to [facility] Please Follow Up With: Mari Gay MD - [phone] When: Call to make an appointment with your doctor in 6 weeks. If you had elevated Blood pressure or 4th degree laceration you will need to be seen in 2 weeks. Primary Care Physician: Care Physician,No Primary [Primary Care Provider] - Test Results: Test results from this visit will be discussed in further detail at your follow- up appointment, if applicable.
[2020-07-02] MEDS: Ondansetron 4 MG/2 ML Vial IV (06:19)
--- NOTE | 2020-07-02 09:51 | NURSING ---
Addendum entered by Dolores Casas 07/02/20 09:52: epidural catheter d/c'd. blue tip intact. DSD applied Original Note: [id number] pt helped up to bathroom. pt tolerated well
[2020-07-02] MEDS: Ibuprofen 600 MG Tablet PO (13:44)
[2020-07-02] MEDS: Acetaminophen 500 MG Tablet PO (20:23)
[2020-07-03] VITALS: BP 116/79; PULSE 86
[2020-07-03 05:02] VITALS: BP 90/55; PULSE 73; RESP 16; TEMP 36.6
[2020-07-03] MEDS: Ibuprofen 600 MG Tablet PO (05:55)
[2020-07-03 07:41] VITALS: BP 111/62; PULSE 74
[2020-07-03 08:00] VITALS: BP 111/62; PULSE 74; RESP 18; TEMP 36.3; O2SAT 98
--- NOTE | 2020-07-03 08:33 | PCM.PN.OB ---
Patient Problems: Active and Suspected Problems (Last Reviewed 07/01/20 @ 11:41 by Judy Foss) Encounter for induction of labor (Acute) Oligohydramnios (Acute) plan IOL pit/fb. epi PRN. GBS neg 36 weeks gestation of (Acute) GBS negative. electronic covid test ordered 06/17/20 (scheduled 07/01/20 at 1420) H/O shoulder dystocia in prior , currently (Acute) mild. recommend delivery by 39 weeks. Depression affecting (Acute) no meds, encouraged counseling (Acute) low risk decline carrier and declined ntd screening. Anatomy nl Supervision of high-risk (Acute) PRR VIJAY 07/15/20 Rosalind Laboy Johny Subjective: Patient doing well without complaints. Tolerating PO. Ambulating and voiding without difficulty. feeding well. Denies chest pain, shortness of breath, calf pain/swelling, fevers, chills, lightheadedness. - Physical Exam Vitals/I&O's: Vital Signs Temp Pulse Resp BP Pulse Ox 97.8 F 74 16 111/62 98 07/03/20 05:02 07/03/20 07:41 07/03/20 05:02 07/03/20 07:41 07/02/20 17:00 Oxygen Delivery Method Room Air Weight: 233 lb 11.04 oz Body Mass Index (BMI) 40.1 Intake and Output for Last 24 Hours 07/01/20 07/02/20 07/03/20 23:59 23:59 23:59 Intake Total 901.84 / 901.84 2567.11 / 2567.11 Output Total 1300 / 1300 Balance 901.84 / 901.84 1267.11 / 1267.11 General: Alert, Oriented x3 Microbiology Past 72 Hours 07/01/20 16:34 Mucosa - Nose SARS-CoV-2 Antigen (Rapid) - Final Current Medications Acetaminophen (Acetaminophen 500 Mg Tablet) 500 - 1,000 mg PO Q6H PRN PRN PRN Reason: Pain Score 1-3 Last Admin: 07/02/20 20:23 Dose: 1,000 mg Documented by: Al Hydroxide/Mg Hydroxide (Mag Hydrox/Al Hydrox/Simeth 30 Ml Udc) 15 - 30 ml PO Q4H PRN PRN PRN Reason: INDIGESTION Bisacodyl (Bisacodyl 10 Mg Suppository) 10 mg RC UD PRN PRN Reason: If no BM Citric Acid/Sodium Citrate (Sodium Citrate/Citric Acid 30 Ml Udc) 30 ml PO X1 PRN PRN Reason: Section Dibucaine (Dibucaine 30 Gm Tube) 1 applic TOPICAL TID PRN PRN; Protocol PRN Reason: Discomfort Ephedrine Sulfate (Ephedrine Sulfate 50 Mg/Ml Ampul) 10 mg IV Q10M PRN PRN Reason: hypotension Ephedrine Sulfate (Ephedrine Sulfate 50 Mg/Ml Ampul) 10 mg IM Q30M PRN PRN Reason: hypotension Fentanyl Citrate (Fentanyl 100 Mcg/2 Ml Ampul) 25 - 50 mcg IV Q2H PRN PRN PRN Reason: Pain Score 4-10 Hydrocortisone (Hydrocortisone 2.5% Crm) 1 applic TOPICAL TID PRN PRN; Protocol PRN Reason: Discomfort Oxytocin/Sodium Chloride () 30 units in 500 mls @ 2 mls/hr IV .Q250H FRAN Last Infusion: 07/02/20 04:40 Dose: Infused Documented by: Ibuprofen (Ibuprofen 600 Mg Tablet) 600 mg PO Q6H PRN PRN PRN Reason: Pain Score 1-3 Last Admin: 07/03/20 05:55 Dose: 600 mg Documented by: Methylergonovine Maleate (Methylergonovine 0.2 Mg/Ml Ampul) 0.2 mg IM X1 PRN PRN Reason: Excess bleeding/uterine atony Last Admin: 07/02/20 05:30 Dose: 0.2 mg Documented by: Nalbuphine HCl (Nalbuphine 10 Mg/Ml Ampul) 5 mg IV Q3H PRN PRN PRN Reason: ITCHING Naloxone HCl (Naloxone 0.4 Mg/Ml Syringe) 0.02 mg IV Q1M PRN PRN Reason: RR <10 and pt unresponsive Ondansetron HCl (Ondansetron 4 Mg/2 Ml Vial) 4 mg IV Q4H PRN PRN PRN Reason: NAUSEA Last Admin: 07/02/20 06:19 Dose: 4 mg Documented by: Prochlorperazine Edisylate (Prochlorperazine 10 Mg/2 Ml Vial) 10 mg IV Q6H PRN PRN PRN Reason: NAUSEA Senna/Docusate Sodium (Senna/Docusate Sodium 1 Tablet) 1 - 2 tablet PO DAILY PRN PRN PRN Reason: Constipation Simethicone (Simethicone 80 Mg Tablet) 80 mg PO PCHS PRN PRN Reason: Indigestion/Stomach pain Sodium Chloride (0.9% Saline Lock 10 Ml Syringe) 10 - 40 ml IV X1 PRN PRN Reason: SALINE FLUSH Sodium Chloride (0.9% Saline Lock 10 Ml Syringe) 5 - 15 ml IV UD PRN PRN Reason: SALINE FLUSH Medical Necessity - Tobacco Use Smoking Status: Never smoker Assessment/Plan All Active Problems (Last Reviewed 07/01/20 @ 11:41 by Judy Foss) Encounter for induction of labor (Acute) Oligohydramnios (Acute) 36 weeks gestation of (Acute) H/O shoulder dystocia in prior , currently (Acute) Depression affecting (Acute) (Acute) Supervision of high-risk (Acute) screening encounter (Resolved) BMI 35.0-35.9,adult (Resolved) False labor (Resolved) Obesity affecting in third trimester (Resolved) (Resolved) Supervision of normal (Resolved) Term (Resolved) s/p PPD # 1 1. routine post delivery care 2. breast feeding- support given 3. rh positive 4. rubella immune
[2020-07-03 12:07] VITALS: BP 115/67; PULSE 77; TEMP 36.5
[2020-07-03 12:20] VITALS: BP 115/67; PULSE 77; RESP 18; TEMP 36.5; O2SAT 98
== END 2020-07-03 12:50 | disposition home or self-care (01) | DRG 881 ==
PROVIDERS: Admitting Provider Obstetrics & Gynecology; Referring Provider Obstetrics & Gynecology; Visit Provider Obstetrics & Gynecology
DX: F32.9 Major depressive disorder, single episode, unspecified (principal); O41.03X0 Oligohydramnios, third trimester, not applicable or unspecified; O99.344 Other mental disorders complicating childbirth; Z3A.38 38 weeks gestation of pregnancy; Z37.0 Single live birth
CPT/HCPCS: 59025; 59050; 85025; 86850; 86900; 86901; 87426; 99218; J7120; G0378; J2405

== ENCOUNTER → 2020-07-26 16:10 | Outpatient (CLI) | payer OTHER, SELFPAY ==
[2020-07-01 14:16] VITALS: BMI 40.1
[2020-07-26 17:27] LABS: Vitamin B12 421 pg/mL (211-911)
== END ==
PROVIDERS: Visit Provider Obstetrics & Gynecology
DX: Z13.21 Encounter for screening for nutritional disorder (principal)
CPT/HCPCS: 36415; 82607; 83921

== ENCOUNTER → 2020-08-16 16:38 | Outpatient (CLI) | payer OTHER, SELFPAY ==
[2020-08-16 15:22] VITALS: BMI 40.1
[2020-08-19 20:48] LABS: HPV Reflexed? NOT INDICATED
== END ==
PROVIDERS: Referring Provider Nurse Practitioner Women's Health; Visit Provider Nurse Practitioner Women's Health
DX: Z12.4 Encounter for screening for malignant neoplasm of cervix (principal)
CPT/HCPCS: 88175; G0145

== ENCOUNTER 2023-02-10 22:27 | Emergency (ER) | payer OTHER, SELFPAY ==
[2023-02-10 22:28] VITALS: BP 146/105; PULSE 119; RESP 20; TEMP 36.6; O2SAT 100; BMI 38.8
--- NOTE | 2023-02-10 22:36 | EKG12_ITS ---
Test Reason : FLANK PAIN Blood Pressure : / mmHG Vent. Rate : 118 BPM Atrial Rate : 118 BPM P-R Int : 142 ms QRS Dur : 072 ms QT Int : 322 ms P-R-T Axes : 056 -16 039 degrees QTc Int : 451 ms Sinus tachycardia Otherwise normal ECG Confirmed by AYLIN LICEA, MARLENI ([id number]), development editor ISABELLA HAINES ([id number]) on 02/12/2023 11:56:40 AM Referred By: Confirmed By:MARLENI VIERA MD
--- NOTE | 2023-02-10 22:38 | EDS_ITS ---
HPI History of Present Illness Chief Complaint: Flank Pain Narrative Narrative: Patient presents with subjective fevers, cough congestion myalgias and back pain for 2 days. She also has some right upper quadrant abdominal pain. She had similar symptoms a month ago was placed on doxycycline and improved. She is denying any urinary symptoms. She has no headache or neck stiffness. She has some upper airway congestion, no shortness of breath. PFSH PFSH Home Medications norgestimate 0.25 mg-ethinyl estradiol 35 mcg tablet (Sprintec (28)) 1 tab PO QDAY #84 tabs 08/16/20 [Rx Last Taken Unknown] metronidazole 500 mg tablet 500 mg PO BID #14 tabs 03/31/21 [Rx Last Taken Unknown] azithromycin 250 mg tablet (Zithromax Z-Singh) See Rx Instructions PO .COMPLEX #6 tabs 08/29/21 [Rx Last Taken Unknown] Allergy/AdvReac Type Severity Reaction Status Date / Time iodine Allergy Other Verified 02/10/23 22:28 morphine Allergy Other Verified 02/10/23 22:28 shellfish derived Allergy Other Verified 02/10/23 22:28 Family History Grandfather Heart disease Father Heart disease Surgical History kidney abscess surgery Social History Smoking Status: Never smoker alcohol intake: former substance use type: does not use caffeine: Yes what type of physical activity do you participate in: walking seatbelt use: always do you feel safe at home: Yes additional social history: [employer] Patient works at [employer] ROS ED ROS Narrative Past medical history: Reviewed Medications: Reviewed Social history: Noncontributory Review of systems: All systems negative except as indicated General: Subjective fevers and intermittent chills Eyes: No visual changes ENT: Slight upper airway congestion Neck: No neck pain Cardiovascular: No chest pain Respiratory: No shortness of breath, dry cough which is intermittent Gastrointestinal: right upper quadrant abdominal pain, no nausea or Genitourinary: No dysuria Musculoskeletal: Generalized myalgias Skin: No rash Neurological: No memory loss, confusion or any focal weakness EXAM Physical Exam Narrative Exam Narrative: Physical exam General: Patient appears somewhat uncomfortable Head: Normocephalic, Atraumatic Eyes: Conjunctiva not pale ENT: Mucous membranes are slightly dry, some congestion. Normal posterior pharynx Neck: Supple, Nontender, No lymphadenopathy Cardiovascular: regular rhythm, slightly tachycardic Respiratory: No distress, CTA bilaterally Abdomen: Soft, some right upper quadrant abdominal pain negative Briseno's. No guarding or rebound Back: Nontender, Normal Inspection. Negative for: CVA tenderness Extremities: Nontender, No edema Skin: Normal color, No rash Neurological: Alert, Normal Strength, Normal Sensation Psychological: Normal affect Const Vital Signs: 02/10/23 22:28 02/10/23 22:36 Temperature 97.9 F Temperature Source Temporal Pulse Rate 119 H Respiratory Rate 20 H Blood Pressure 146/105 H Blood Pressure Mean 118 Pulse Ox 100 Oxygen Delivery Method Room Air MDM MDM MDM Narrative Medical decision making narrative: Patient had vague symptoms she did have myalgias and subjective fevers therefore I wanted to make sure she did not have COVID or influenza. Seems like most of her symptoms are right upper quadrant, which are quite reproducible. She has a negative ultrasound and negative transaminases, however she may need nuclear study for gallbladder function, this can be done outpatient since her symptoms improved. Does not have any chest pain or shortness of breath or any reason for me to worry about pulmonary embolism. Any reason to treat with antibiotics. At this time she does not meet. I will follow her up with GI Lab Data Labs: Laboratory Results - last 24 hr 02/10/23 02/10/23 22:47 22:49 WBC 7.6 RBC 4.34 Hgb 13.3 Hct 40.0 MCV 92.2 MCH 30.6 MCHC 33.3 RDW Std Deviation 42.5 RDW Coeff of Yahir 12.4 Plt Count 307 MPV 9.1 Immature Gran % (Auto) 0.400 Neut % (Auto) 71.3 H Lymph % (Auto) 22.8 [place] % (Auto) 3.4 Eos % (Auto) 1.4 Baso % (Auto) 0.7 Absolute Neuts (auto) 5.5 Absolute Lymphs (auto) 1.74 Nucleated RBC % 0 PT 12.8 INR 1.0 APTT 27.4 Sodium 139 Potassium 3.9 Chloride 106 Carbon Dioxide 26.0 Anion Gap 7 BUN 18 Creatinine 1.17 H Estim Creat Clear Calc 60.71 Est GFR (MDRD) Af Amer 70 Est GFR (MDRD) Non-Af 58 L BUN/Creatinine Ratio 15.4 Glucose 109 H Lactic Acid 1.9 Calcium 9.2 Total Bilirubin 0.90 AST 17 ALT 38 Alkaline Phosphatase 65 Total Protein 8.0 Albumin 3.9 Globulin 4.1 Albumin/Globulin Ratio 1.0 Lipase 45 Urine Color Yellow Urine Clarity Clear Urine pH 6.0 Ur Specific [place] 1.015 Urine Protein 15 H Urine Glucose (UA) Normal Urine Ketones Negative Urine Occult Blood 150 H Urine Nitrite Negative Urine Bilirubin Negative Urine Urobilinogen Normal Ur Leukocyte Esterase 100 H Urine RBC 0-5 SEEN Urine WBC 5-10 SEEN Ur Squamous Epith Cells 0-5 SEEN Urine Bacteria 0 SEEN Urine Mucus 0 SEEN Radiography Diagnostic Testing: Clinical Impression(s) from Imaging Studies Chest X-Ray 02/10/23 23:05 IMPRESSION: No radiographic evidence of acute cardiopulmonary disease. Electronically Signed: Sae Lambert DO at 23:27 EDT , Gallbladder Ultrasound 02/10/23 23:41 IMPRESSION: 1. Nonvisualization of pancreas. 2. No sonographic evidence to suggest acute right upper quadrant abdominal disease. Electronically Signed: Agnes Dahl MD at 1:17 EDT , Chest x-ray read by me as normal Rhythm Strip Rhythm Strip: Sinus Tach Rate: 110 Ectopy: None EKG Initial EKG: Comments: Sinus rhythm with a rate of 118. Normal OK and QTc intervals. No ischemic changes. Interpreted by emergency doctor Discharge Plan Triage Chief Complaint: Flank Pain ED Provider: Carlos Machado Dx/Rx/DC Orders Clinical Impression: Right upper quadrant abdominal pain, Myalgia Instructions: HIDA Scan Prescriptions: No Action norgestimate-ethinyl estradiol [Sprintec (28)] 0.25-35 mg-mcg tablet 1 tab PO QDAY Qty: 84 4RF metronidazole 500 mg tablet 500 mg PO BID Qty: 14 0RF azithromycin [Zithromax Z-Singh] 250 mg tablet See Rx Instructions PO .COMPLEX Qty: 6 0RF Rx Instructions: take 500 mg today (day 1), then 250 mg for 4 days (days 2-5) PO Primary Care Provider: STACY MORENO Referrals: Joseph Borja DO [Med Staff - Active Staff] - 3-5 Days Care Physician,No Primary [Non-Staff] - Disposition Disposition: Home, Self Care
[2023-02-10] MEDS: 0.9% Normal Saline (1000mL) 1,000 ML 999 ML IV (22:55)
[2023-02-10] MEDS: Ketorolac 15 MG/ML Vial IV (22:57)
[2023-02-10 23:01] LABS: Bacteria 0 SEEN /hpf (None Seen); Mucous, Urine 0 SEEN /hpf (<or=2+)
[2023-02-10 23:02] LABS: Absolute Lymphocyte Count 1.74 X10^3/uL (0.83-4.51); Absolute Neutrophil Count 5.5 X10^3/uL (2.0-7.7); Basophil# 0.05 X10^3/uL; Basophil% 0.7 % (0-1); Eosinophil# 0.11 X10^3/uL; Eosinophils% 1.4 % (0-5); Hemoglobin 13.3 g/dL (12.0-15.0); Lymphocyte # 1.74 X10^3/ul (0.83-4.51); Lymphocyte % 22.8 % (19-41); Mean Corp Hgb Conc 33.3 g/dL (32-36); Mean Corpuscular Hgb 30.6 pg (27.0-32.0); Mean Corpuscular Volume 92.2 fL (81-99); Mean Platelet Vol. 9.1 fl (6.2-12.0); Monocyte# 0.26 X10^3/uL; Monocyte% 3.4 % (0-10); NRBC Flagged by Analyzer 0 % (0-5); Neutrophil # 5.45 X10^3/uL (2.7-7.7); Neutrophil % 71.3 % (47-70); Platelet Count 307 K/mm3 (150-450); RBC Distribution Width CV 12.4 % (11.6-14.6); RBC Distribution Width SD 42.5 fl (35.1-43.9); Red Blood Count 4.34 M/mm3 (4.2-5.4); White Blood Count 7.6 K/mm3 (4.4-11.0)
[2023-02-10 23:03] LABS: Color, Urine Yellow (Yellow); Glucose, Dipstick Normal (Normal); Ketone-Dipstick Negative (Negative); Leukocyte Esterase-Dipstick 100 /ul (Negative); Nitrite-Dipstick Negative (Negative); Occult Blood-Urine 150 /ul (Negative); Protein-Dipstick 15 mg/dl (Negative); Specific Gravity, Urine 1.015 (1.002-1.030); Urine Bilirubin Dipstick Negative (Negative); Urine Clarity Clear (Clear); Urine Urobilinogen Normal (Normal)
--- NOTE | 2023-02-10 23:05 | RAD_ITS ---
INDICATION: cough EXAMINATION/TECHNIQUE: X-RAY - XR Chest 1 View COMPARISON: FINDINGS: LINES/DEVICES: None. LUNGS: No consolidation, edema or effusion. No pneumothorax. MEDIASTINUM AND CARDIOVASCULAR STRUCTURES: Cardiac silhouette not enlarged. Central airways and mediastinal contour are unremarkable. BONES AND SOFT TISSUES: Unremarkable. RAD/Chest 1 View (Portable) IMPRESSION: No radiographic evidence of acute cardiopulmonary disease. Electronically Signed: Sae Lambert DO at 23:27 EDT ,
[2023-02-10 23:19] LABS: AST(SGOT) 17 U/L (15-37); Alanine Aminotransfer ALT/SGPT 38 U/L (13-56); Albumin, Serum 3.9 g/dL (3.2-5.0); Alkaline Phosphatase 65 U/L (45-117); Anion Gap 7 (5-15); BUN 18 mg/dL (7-18); BUN/Creat Ratio 15.4 RATIO (10-20); Calcium,Total 9.2 mg/dL (8.5-10.1); Chloride 106 mmol/L (98-107); Creatinine, Serum 1.17 mg/dL (0.55-1.02); EST Glomerular Filtration Rate 58 mL/min (>60); Est Glom Filt Rate - Afr Amer 70 mL/min (>60); Estimated Creatinine Clearance 60.71 ml/min; Globulin 4.1 g/dL (2.2-4.2); Glucose 109 mg/dL (74-106); Partial Thromboplast Time 27.4 Seconds (24.1-36.2); Potassium 3.9 mmol/L (3.5-5.1); Prothrombin Time (Protime)PT. 12.8 SECONDS (11.7-14.9); Sodium Level 139 mmol/L (136-145)
[2023-02-10 23:20] LABS: Red Blood Cells-Urine 0-5 SEEN /hpf (0-5); Squamous Epithelial Cells - UA 0-5 SEEN /hpf (5-10); White Blood Cells 5-10 SEEN /hpf (0-5)
[2023-02-10 23:27] LABS: Lactic Acid 1.9 mmol/L (0.4-1.9)
--- NOTE | 2023-02-10 23:41 | US_ITS ---
STUDY: ABDOMINAL ULTRASOUND - RIGHT UPPER QUADRANT REASON FOR VISIT: Female, 32 years old patient with right upper quadrant abdominal pain. TECHNIQUE: Ultrasound evaluation of the right upper quadrant was performed with real-time and static norris-scale imaging. TECHNICAL QUALITY: Adequate. Examination limited by bowel gas. COMPARISON: Prior comparison studies are not available for review at this time. FINDINGS: Liver: The liver measures 16.8 cm. There is normal echogenicity of the liver. The bile ducts are within normal limits. There is hepatic color flow. The direction of portal flow is hepatopetal. There is no demonstrated mass lesion. Gallbladder: Normal distended gallbladder. The gallbladder wall measures 2.5 mm. There is a negative sonographic Briseno''s sign. There is no pericholecystic fluid. There are no gallstones. Common Bile Duct (C.B.D.): The common bile duct measures 3.4 mm. Pancreas: There is nonvisualization of the pancreas. Right Kidney: Normal size of the right kidney. The right kidney measures 11.6 x 4.9 x 5.6 cm. Normal renal cortex. The right cortex measures 1 cm. There is no demonstrated renal mass or cyst. There is no right hydronephrosis. US/Gallbladder IMPRESSION: 1. Nonvisualization of pancreas. 2. No sonographic evidence to suggest acute right upper quadrant abdominal disease. Electronically Signed: Agnes Dahl MD at 1:17 EDT ,
[2023-02-11 00:10] LABS: Lipase 45 U/L (13-75)
[2023-02-11 01:47] VITALS: BP 130/84; PULSE 95
== END 2023-02-11 01:49 | disposition home or self-care (01) ==
PROVIDERS: Emergency Provider Emergency Medicine; Visit Provider Emergency Medicine
DX: R10.11 Right upper quadrant pain (principal); M79.10 Myalgia, unspecified site
CPT/HCPCS: 71045; 76705; 80053; 81001; 83605; 83690; 85025; 85610; 85730; 87040; 87086; 87088; 87186; 87428; 93005; 96374; 96375; 99284; J7030; A4216

== ENCOUNTER → 2023-02-12 | Outpatient (CLI) | payer OTHER, SELFPAY ==
[2023-02-12 16:42] LABS: Estradiol 58.6 pg/mL; Prolactin 15.5 ng/mL; T4 Free Direct 1.08 ng/dL (0.76-1.46); Thyroid Stim Hormone (TSH) 1.11 uIU/mL (0.358-3.74)
[2023-02-14 21:07] LABS: Chlamydia By Nucleic Acid AMP Negative (Negative); Gonococcus By Nucleic Acid AMP Negative (Negative)
[2023-02-17 09:07] LABS: HPV APTIMA, High Risk Negative (Negative)
[2023-02-18 10:08] LABS: Testosterone Free 0.5 pg/mL (0.0-4.2); Thyroid Peroxidase AB 13 IU/mL (0-34)
== END | disposition home or self-care (01) ==
PROVIDERS: Referring Provider Nurse Practitioner Women's Health; Visit Provider Nurse Practitioner Women's Health
DX: Z11.3 Encounter for screening for infections with a predominantly sexual mode of transmission (principal); Z12.4 Encounter for screening for malignant neoplasm of cervix; L68.0 Hirsutism; N93.9 Abnormal uterine and vaginal bleeding, unspecified; Z13.29 Encounter for screening for other suspected endocrine disorder
CPT/HCPCS: 36415; 82627; 82670; 83001; 84146; 84402; 84439; 84443; 86376; 87491; 87591; 87624; 88175; 82626; G0145

== ENCOUNTER → 2023-02-18 | Outpatient (CLI) | payer OTHER, SELFPAY ==
--- NOTE | 2023-02-18 14:25 | US_ITS ---
HISTORY: pain. TECHNIQUE: Transabdominal and transvaginal pelvic ultrasound was performed with norris scale and color Doppler evaluation. 95 images. COMPARISON: None. FINDINGS: UTERUS: 9.7 x 4.9 x 5.5 cm. Anteverted. ENDOMETRIAL THICKNESS: 10 mm. RIGHT OVARY: 1.4 x 1.5 x 2.7 cm with small follicles. No adnexal masses LEFT OVARY: 2.5 x 2.6 x 3 cm with a 1.8 cm dominant follicle. No adnexal masses FREE FLUID: None. URINARY BLADDER: Unremarkable at 410 cc. IMPRESSION: Unremarkable pelvic ultrasound. Electronically Signed: Dolores Melvin MD at 10:11 EST Reading Location ID and State: [facility] / [place] Tel , Service support , HISTORY: pain. TECHNIQUE: Transabdominal and transvaginal pelvic ultrasound was performed with norris scale and color Doppler evaluation. 95 images. COMPARISON: None. FINDINGS: UTERUS: 9.7 x 4.9 x 5.5 cm. Anteverted. ENDOMETRIAL THICKNESS: 10 mm. RIGHT OVARY: 1.4 x 1.5 x 2.7 cm with small follicles. No adnexal masses LEFT OVARY: 2.5 x 2.6 x 3 cm with a 1.8 cm dominant follicle. No adnexal masses FREE FLUID: None. URINARY BLADDER: Unremarkable at 410 cc. US/Pelvic (Non ) IMPRESSION: Unremarkable pelvic ultrasound. Electronically Signed: Dolores Melvin MD at 10:11 EST ,
== END | disposition home or self-care (01) ==
PROVIDERS: Referring Provider Nurse Practitioner Women's Health; Visit Provider Nurse Practitioner Women's Health
DX: N94.6 Dysmenorrhea, unspecified (principal)
CPT/HCPCS: 76830; 76856

== ENCOUNTER 2023-06-17 14:12 | Emergency (ER) | payer OTHER, SELFPAY | END 2023-06-17 14:47 | disposition left against medical advice (07) | LOC: ED 14:59 | DX: Z53.21 Procedure and treatment not carried out due to patient leaving prior to being seen by health care provider (principal) ==

== ENCOUNTER 2023-06-18 09:32 | Emergency (ER) | payer OTHER, SELFPAY ==
[2023-06-18 09:35] VITALS: BP 140/93; PULSE 111; RESP 22; TEMP 36.7; O2SAT 97; BMI 37.9
--- NOTE | 2023-06-18 10:53 | CT_ITS ---
INDICATION: Pain EXAMINATION: CT ABDOMEN AND PELVIS WITHOUT CONTRAST TECHNIQUE: Helically acquired images were obtained of the abdomen and pelvis without oral or IV contrast. A radiation dose optimization technique was used for this scan. IV Contrast dosage and agent: None. Oral contrast: None. RADIATION DOSAGE (If Supplied By Facility): CTDIvol = ( 18.36 ) mGy, DLP = ( 1018.30 ) mGycm COMPARISON: No relevant prior comparison study available FINDINGS: LOWER CHEST: 6 x 8 mm pleural-based density in the right lower lobe likely due to atelectasis No cardiomegaly or pericardial effusion. LIVER: Homogeneous. No focal mass. GALLBLADDER AND BILIARY TREE: No calcified gallstones. No gallbladder distension or wall edema. No intra- or extrahepatic biliary ductal dilation. PANCREAS: No focal cystic or solid mass. SPLEEN: Normal size without focal cystic or solid mass. ADRENAL GLANDS: No nodules. KIDNEYS AND URETERS: Normal renal size and position. No hydronephrosis. PERITONEUM: No ascites or free air. No other fluid collection. BOWEL: No evidence of acute appendicitis. No stomach or bowel distension. No focal inflammatory change. LYMPH NODES: No enlarged mesenteric or retroperitoneal lymph nodes. VESSELS: Aorta is non-dilated. URINARY BLADDER: Thickening of the bladder wall likely due to REPRODUCTIVE ORGANS: No pelvic masses. The uterus and ovaries are better evaluated by ultrasound. ABDOMINAL WALL: Small umbilical hernia containing fat. BONES: No lytic or blastic abnormality. CT/Abdomen/Pelvis without Cont IMPRESSION: Mild atelectatic changes in the right lung base. No focal acute inflammatory process. Electronically Signed: Sunil Rudolph MD at 12:40 EST ,
--- NOTE | 2023-06-18 11:02 | EX.ED.DYSGE1 ---
HPI History of Present Illness Chief Complaint: Fever Narrative Narrative: 33-year-old female who denies significant past medical history states that she has had fevers on and off for the last 3 to 4 days. She is alternating Tylenol and ibuprofen and has had fever as high as 104 ?F. She states that she went to urgent care yesterday because she thought maybe she had a urinary tract infection although she denies any dysuria or hematuria. She was told that she had white cells in her urine, and was going to be prescribed an antibiotic, but during the abdominal examination with deep palpation had left lower quadrant tenderness. She was told to come to the emergency department with a suspicion of diverticulitis, however the patient states that she does not have any problems with bowel movements, no diarrhea. Then, she relates history that this happened to her in February, and had an ultrasound of the ovaries, and had blood work performed when she came to the ED and they did not find anything. 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 She presents today wanting blood work and is agreeable to imaging to find out why she might have a fever. She denies any upper respiratory infection type symptoms, no shortness of breath, no cough. [facility] Medical History Acute pharyngitis, unspecified URI (upper respiratory infection) Home Medications cephalexin 500 mg capsule 500 mg PO Q12 #14 CAPSULES 06/18/23 [Rx Last Taken Unknown] Allergy/AdvReac Type Severity Reaction Status Date / Time iodine Allergy Other Verified 06/18/23 09:34 morphine Allergy Other Verified 06/18/23 09:34 shellfish derived Allergy Other Verified 06/18/23 09:34 Family History Grandfather Heart disease Father Heart disease Surgical History kidney abscess surgery Social History Smoking Status: Never smoker alcohol intake: former substance use type: does not use caffeine: Yes what type of physical activity do you participate in: walking seatbelt use: always do you feel safe at home: Yes additional social history: [employer] Patient works at [employer] ROS ROS ED ROS Narrative Constitutional: No fever, no chills. HEENT: No sore throat. No neck pain. No loss of vision. No rhinorrhea. Cardiovascular: No chest pain. No palpitations. No pedal edema. Respiratory: No cough, no shortness of breath. Abdominal: Questionable left lower quadrant abdominal pain. No nausea. No vomiting. Genitourinary: No dysuria. No hematuria. Musculoskeletal: No myalgias. No arthralgias. Neurologic: No headaches. No dizziness. No lightheadedness. Skin: No rash. No change in color. Psychiatric: No depression. No anxiety. EXAM Physical Exam Const Vital Signs: 06/18/23 09:35 06/18/23 11:18 06/18/23 11:33 Temperature 98.1 F Temperature Source Oral Pulse Rate 111 H 94 Respiratory Rate 22 H 14 Respiratory Effort Normal Non-Labored Blood Pressure 140/93 H 103/75 Blood Pressure Mean 108 84 Pulse Ox 97 96 Oxygen Delivery Method Room Air Room Air 06/18/23 13:04 Temperature Temperature Source Pulse Rate 57 L Respiratory Rate 19 H Respiratory Effort Blood Pressure 108/56 L Blood Pressure Mean 73 Pulse Ox 98 Oxygen Delivery Method Room Air MDM MDM MDM Narrative Medical decision making narrative: In the differential diagnosis is UTI versus pyelonephritis versus ureterolithiasis with infection versus diverticulitis. I do have low suspicion for diverticulitis based on her clinical exam and her history. Regardless, I will obtain baseline laboratories of CBC and CMP, repeat her urinalysis with microanalysis, and obtain CT imaging without contrast. I reviewed her laboratory work and she has normal white count of 7.1, hemoglobin normal at 13.6, platelet count 281. Her electrolyte panel is grossly unremarkable with a normal sodium of 138, potassium 3.5, glucose appropriately elevated at 135 with a normal anion gap of 7, LFTs are grossly unremarkable. Urinalysis obtained and reviewed she has 10-25 WBCs with 10-25 RBCs. There are 5-10 squamous epithelial cells, and 2+ bacteria. In review of her CT report, there is no appendicitis, no diverticulitis, but there is slight comment on thickening of the bladder wall which could be consistent with cystitis. Hence, her urine will be sent for culture, and she will be placed on Keflex for the next week. She is not febrile here. I feel she can be discharged safely home with follow-up to her primary care provider. Return instructions to the emergency department were reviewed. I do not feel she requires admission. Disposition is discharged home, in stable condition. History & Record Review Discussion w/independent historian: Patient Additional record(s) reviewed:: Prior ED visit Lab Data Attestation: I reviewed the patient's lab results. Labs: Laboratory Results - last 24 hr 06/18/23 06/18/23 11:00 11:35 WBC 7.1 RBC 4.51 Hgb 13.6 Hct 41.2 MCV 91.4 MCH 30.2 MCHC 33.0 RDW Std Deviation 40.3 RDW Coeff of Yahir 11.9 Plt Count 281 MPV 9.4 Immature Gran % (Auto) 0.300 Neut % (Auto) 72.4 H Lymph % (Auto) 13.8 L [place] % (Auto) 12.6 H Eos % (Auto) 0.3 Baso % (Auto) 0.6 Absolute Neuts (auto) 5.1 Absolute Lymphs (auto) 0.98 Nucleated RBC % 0 Sodium 138 Potassium 3.5 Chloride 104 Carbon Dioxide 27.0 Anion Gap 7 BUN 13 Creatinine 0.98 Estim Creat Clear Calc 95.78 Est GFR (MDRD) Af Amer 85 Est GFR (MDRD) Non-Af 71 BUN/Creatinine Ratio 13.3 Glucose 135 H Calcium 9.1 Total Bilirubin 0.90 AST 27 ALT 37 Alkaline Phosphatase 79 Total Protein 7.8 Albumin 3.2 Globulin 4.6 H Albumin/Globulin Ratio 0.7 L Serum , Qual NEGATIVE Urine Color Yellow Urine Clarity Clear Urine pH 6.0 Ur Specific [place] 1.010 Urine Protein 15 H Urine Glucose (UA) Normal Urine Ketones 15 H Urine Occult Blood 150 H Urine Nitrite Negative Urine Bilirubin Negative Urine Urobilinogen Normal Ur Leukocyte Esterase 100 H Urine RBC 10-25 SEEN Urine WBC 10-25 SEEN Ur Squamous Epith Cells 5-10 SEEN Urine Bacteria 2+ Urine Mucus 0 SEEN Radiography Diagnostic Testing: Clinical Impression(s) from Imaging Studies Abdomen/Pelvis CT 06/18/23 10:53 IMPRESSION: Mild atelectatic changes in the right lung base. No focal acute inflammatory process. Electronically Signed: Sunil Rudolph MD at 12:40 EST , Discharge Plan Triage Chief Complaint: Fever ED Provider: Johnathan Macedo Dx/Rx/DC Orders Clinical Impression: Fever, Cystitis Instructions: ED Cystitis Female Adult Prescriptions: New cephalexin 500 mg capsule 500 mg PO Q12 Qty: 14 0RF Primary Care Provider: Care Physician,No Primary Referrals: Care Physician,No Primary [Primary Care Provider] - Activity Restrictions/Additional Instructions: Follow-up with your primary care provider in the next few days. Your urine cultures are pending. Antibiotics as directed. Return with new or worsening symptoms. Disposition Disposition: Home, Self Care
[2023-06-18 11:13] LABS: Absolute Lymphocyte Count 0.98 X10^3/uL (0.83-4.51); Absolute Neutrophil Count 5.1 X10^3/uL (2.0-7.7); Basophil# 0.04 X10^3/uL; Basophil% 0.6 % (0-1); Eosinophil# 0.02 X10^3/uL; Eosinophils% 0.3 % (0-5); Hematocrit 41.2 % (37-47); Hemoglobin 13.6 g/dL (12.0-15.0); Lymphocyte # 0.98 X10^3/ul (0.83-4.51); Lymphocyte % 13.8 % (19-41); Mean Corpuscular Hgb 30.2 pg (27.0-32.0); Mean Corpuscular Volume 91.4 fL (81-99); Mean Platelet Vol. 9.4 fl (6.2-12.0); Monocyte# 0.89 X10^3/uL; Monocyte% 12.6 % (0-10); NRBC Flagged by Analyzer 0 % (0-5); Neutrophil # 5.13 X10^3/uL (2.7-7.7); Neutrophil % 72.4 % (47-70); Platelet Count 281 K/mm3 (150-450); RBC Distribution Width CV 11.9 % (11.6-14.6); RBC Distribution Width SD 40.3 fl (35.1-43.9); Red Blood Count 4.51 M/mm3 (4.2-5.4); White Blood Count 7.1 K/mm3 (4.4-11.0)
[2023-06-18] MEDS: 0.9% Normal Saline (1000mL) 1,000 ML 1000 ML IV (11:24)
[2023-06-18 11:29] LABS: Internal QC Validated? YES +Cl - CLEAR BKGD; Pregnancy, Serum, hCG Quali. NEGATIVE Negative; Record Kit Lot#, Serum Preg. 718086
[2023-06-18 11:30] LABS: ALB/GLOB Ratio 0.7 RATIO (0.9-2.4); AST(SGOT) 27 U/L (15-37); Alanine Aminotransfer ALT/SGPT 37 U/L (13-56); Albumin, Serum 3.2 g/dL (3.2-5.0); Alkaline Phosphatase 79 U/L (45-117); Anion Gap 7 (5-15); BUN 13 mg/dL (7-18); BUN/Creat Ratio 13.3 RATIO (10-20); Calcium,Total 9.1 mg/dL (8.5-10.1); Chloride 104 mmol/L (98-107); Creatinine, Serum 0.98 mg/dL (0.55-1.02); EST Glomerular Filtration Rate 71 mL/min (>60); Est Glom Filt Rate - Afr Amer 85 mL/min (>60); Estimated Creatinine Clearance 95.78 ml/min; Globulin 4.6 g/dL (2.2-4.2); Glucose 135 mg/dL (74-106); Potassium 3.5 mmol/L (3.5-5.1); Protein, Total 7.8 g/dL (6.4-8.2); Sodium Level 138 mmol/L (136-145)
[2023-06-18 11:33] VITALS: BP 103/75; PULSE 94; RESP 14; O2SAT 96
[2023-06-18 11:42] LABS: Mucous, Urine 0 SEEN /hpf (<or=2+)
[2023-06-18 11:48] LABS: Color, Urine Yellow (Yellow); Glucose, Dipstick Normal (Normal); Ketone-Dipstick 15 mg/dl (Negative); Leukocyte Esterase-Dipstick 100 /ul (Negative); Nitrite-Dipstick Negative (Negative); Occult Blood-Urine 150 /ul (Negative); Protein-Dipstick 15 mg/dl (Negative); Urine Bilirubin Dipstick Negative (Negative); Urine Clarity Clear (Clear); Urine Urobilinogen Normal (Normal)
[2023-06-18 11:55] LABS: Red Blood Cells-Urine 10-25 SEEN /hpf (0-5); White Blood Cells 10-25 SEEN /hpf (0-5)
[2023-06-18 11:56] LABS: Bacteria 2+ /hpf (None Seen); Squamous Epithelial Cells - UA 5-10 SEEN /hpf (5-10)
--- OUTSIDE RECORDS SUMMARY | 2023-06-18 12:10 | XMS RPT_ITS | CCD ---
Author Name Unknown Address [address] [place] [address] Organization [facility] Care Team Providers Care Embroiderer Hand Name Role Phone JOSE M PARKER Unavailable Unavailable DANAY ZAIDI Unavailable Unavailcande aguilar NO PRIMARY CARE, Unavailable Unavailable DANAY ZAIDI Unavailable Unavailcande aguilar NO PRIMARY CARE, Unavailable Unavailable CASSIE GOYAL Unavailable Unavailable Jude LICEA, Chemo Haines Primary Care Provider Cehmo Kat MD Primary Care Provider [phone]( [phone] CHEMO KAT Primary Care Unavailable CHEMO KAT Primary Care Unavailable Chemo Kat MD Primary Care Provider Allergies Allergy Classification Reported Allergen(s) Allergy Type Date of Onset Reaction(s) Facility (4 sources) Morphine; Translations: [MORPHINE] Drug Allergy 05-02-2015 Anaphylaxis [facility] Work Phone: (4 sources) Shellfish; Translations: [SHELLFISH CONTAINING PRODUCTS] Drug Allergy 05-02-2015 Hives [facility] Work Phone: Medications Current Medications Medication Drug Class(es) Dates Sig (Normalized) Sig (Original) benzonatate 100 mg oral capsule (1 source) Non-narcotic Antitussive Start: 01-13-2023 End: 01-20-2023 take 1 capsule by mouth three times daily as needed benzonatate (TESSALON PERLES) 100 mg capsule Indications: Rhinosinusitis Take 1 capsule by mouth three times a day as needed for up to 7 days. 21 capsule 0 01/13/2023 01/20/2023 Active Problems Active Problems Problem Classification Problem Date Documented Date Episodic/Chronic Abdominal pain (1 source) Left lower quadrant pain; Translations: [Left lower quadrant pain] 03-04-2024 Episodic Genitourinary symptoms and ill-defined conditions (1 source) Foul smelling urine; Translations: [Unspecified abnormal findings in urine] 06-17-2023 Episodic Nonmalignant breast conditions (3 sources) Fibrocystic disease of breast; Translations: [Diffuse cystic mastopathy of unspecified breast] Onset: 05-02-2015 05-02-2015 Chronic Other upper respiratory infections (1 source) Chronic sinusitis, unspecified; Translations: [Unspecified sinusitis (chronic)] 01-13-2023 Chronic Other upper respiratory infections (2 sources) Streptococcal sore throat; Translations: [Streptococcal pharyngitis] Episodic Past or Other Problems Problem Classification Problem Date Documented Da te Episodic/Chronic Other skin disorders (3 sources) Skin lesion; Translations: [Disorder of the skin and subcutaneous tissue, unspecified] Onset: 05-02-2015 05-02-2015 Episodic Results Test Name Value Interpretation Reference Range Facil ity Vital Signs Date Time Vital Sign Value Performing Clinician Faci lity 06-17-2023 13:28-0500 Body temperature 97.9 [degF] Vivian Barrientos APRN.[employer]CELLENCE COACH Work Phone: [facility] 06-17-2023 13:28-0500 Body weight 101.33 kg Vivian Barrientos APRN.EXCELLENCE COACH Work Phone: [facility] 06-17-2023 13:28-0500 Diastolic blood pressure 78 mm[Hg] Vivian Barrientos APRN.EXCELLENCE COACH Work Phone: [facility] 06-17-2023 13:28-0500 Heart rate 100 /min Vivian Barrientos APRN.EXCELLENCE COACH Work Phone: [facility] 06-17-2023 13:28-0500 Respiratory rate 21 /min Vivian Barrientos APRN.EXCELLENCE COACH Work Phone: [facility] 06-17-2023 13:28-0500 SaO2% (BldA) [Mass fraction] 98 % Vivian Barrientos APRN.EXCELLENCE COACH Work Phone: [facility] 06-17-2023 13:28-0500 Systolic blood pressure 120 mm[Hg] Vivian Barrientos APRN.EXCELLENCE COACH Work Phone: [facility] 01-13-2023 08:17-0400 Body temperature 99.81 [degF] Vivian Barrientos APRN.EXCELLENCE COACH Work Phone: [facility] 01-13-2023 08:17-0400 Body weight 99.7 kg Vivian Barrientos APRN.EXCELLENCE COACH Work Phone: [facility] 01-13-2023 08:17-0400 Diastolic blood pressure 76 mm[Hg] Vivian Barrientos APRN.EXCELLENCE COACH Work Phone: [facility] 01-13-2023 08:17-0400 Heart rate 124 /min Vivian Barrientos APRN.EXCELLENCE COACH Work Phone: [facility] 01-13-2023 08:17-0400 Respiratory rate 18 /min Vivian Barrientos APRN.EXCELLENCE COACH Work Phone: [facility] 01-13-2023 08:17-0400 SaO2% (BldA) [Mass fraction] 98 % Vivian Barrientos APRN.EXCELLENCE COACH Work Phone: [facility] 01-13-2023 08:17-0400 Systolic blood pressure 118 mm[Hg] Vivian Barrientos APRN.EXCELLENCE COACH Work Phone: [facility] 05-03-2022 08:33-0500 Body temperature 98.71 [degF] Sergio Britton MD Work Phone: [facility] 05-03-2022 08:33-0500 Body weight 98.79 kg Sergio Britton MD Work Phone: [facility] 05-03-2022 08:33-0500 Diastolic blood pressure 76 mm[Hg] Sergio Britton MD Work Phone: [facility] 05-03-2022 08:33-0500 Heart rate 117 /min Sergio Britton MD Work Phone: [facility] 05-03-2022 08:33-0500 Respiratory rate 18 /min Sergio Britton MD Work Phone: [facility] 05-03-2022 08:33-0500 SaO2% (BldA) [Mass fraction] 98 % Sergio Britton MD Work Phone: [facility] 05-03-2022 08:33-0500 Systolic blood pressure 110 mm[Hg] Sergio Britton MD Work Phone: [facility] Encounters Encounter Date Encounter Type Care Provider Facility Start: 06-17-2023 End: 06-17-2023 Patient encounter procedure Vivian Barrientos CLOTH MERC[employer]IZING SUPERVISOR.EXCELLENCE COACH Work Phone: [facility] Procedures Date Procedure Procedure Detail Performing Clinician Start: 06-17-2023 Urnls dip stick/tabl et rgnt auto w/o microscopy Candida Kwon APRN.EXCELLENCE COACH Work Phone: Start: 05-03-2022 STREP A MOLECULAR (POC) Evangelina Franks MA Plan of Treatment Date Care Activity Detail Author Start: 04-22-2030 Urine microalbumin profile DTa P,Tdap,Td Vaccine (3 - Td or Tdap) [facility] Start: 04-15-2023 Depression Assessment Depression Ass essment [facility] Start: 12-14-2022 Covid-19 Vaccine () Covid-19 Vaccine () [facility] Start: 12-14-2022 Influenza vaccination Influenza Vacc ine (#1) [facility] Start: 2022 HPV Testing HPV Testing [facility] Start: 2022 Screening for malign ant neoplasm of cervix HPV Testing [facility] Start: 04-15-2022 DEPRESSION ASSESSMENT DEPRESSION ASS ESSMENT [facility] Start: 12-14-2021 Influenza vaccination INFLUENZA (#1) [facility] Start: 05-29-2021 COVID-19 VACCINE (3 - Booster for Pfizer series) COVID-19 VACCINE (3 - Booster for Pfizer series) [facility] Start: 05-29-2021 Covid-19 Vaccine (3 - Pfizer series) Covid-19 Vaccine (3 - Pfizer series) [facility] Start: 2013 PAP TESTING PAP TESTING [facility] Start: 2013 Screening for malign ant neoplasm of cervix Pap Testing [facility] Start: 2011 Urine microalbumin profile [facility] Start: 2010 HEPATITIS C SCREENING HEPATITIS C [facility] Start: 2010 Hepatitis C screening Hepatitis C [facility] Start: 2010 HIV SCREENING HIV SCREENING [facility] Start: 2010 HIV screening HIV Screening [facility] Start: 1992 HEPATITIS B (1 of 3 - 3-dose series) HEPATITIS B (1 of 3 - 3-dose series) [facility] Start: 1992 Hepatitis B Vaccine (1 of 3 - 3-dose series) Hepatitis B Vaccine (1 of 3 - 3-dose series) [facility] Immunizations Immunization Date Immunization Notes Care Provider Fa cilisammie 02-15-2021 influenza virus vacc ine, unspecified formulation Vivian Barrientos APRN.EXCELLENCE COACH Work Phone: [facility] 02-01-2016 influenza virus vacc ine, unspecified formulation Sergio Britton MD Work Phone: [facility] Payers Date Payer Category Payer Unknown [id number] 2021 Unknown [id number] Private Health Insurance [id number] Social History Date Type Detail Facility Start: 01-29-2016 Tobacco smoking status NHIS Never sm oked tobacco [facility] Start: 05-03-2022 End: 06-17-2023 Alcohol intake Not Asked [facility] Start: 1992 Sex Assigned At Not on file C [facility] Start: 01-13-2023 End: 06-17-2023 History of Social function [facility] Start: 01-13-2023 End: 06-17-2023 Tobacco use panel [facility] History of Present illness Narrative 06-17-2023 Vivian Barrientos APRN.EXCELLENCE COACH - 06/17/2023 1:46 PM EST Note Date & Type Note Facility 06-17-2023 History of Presen t illness Narrative Patient came in with complaints of fever that has been up to 102. Patient says last time this happened in February she thinks she had a UTI. Patient denies any urinary tract symptoms. Upon assessment patient has 8 out of 10 left lower quadrant abdominal pain. This mixed with the fever patient needs to go to the ER for full evaluation. Patient was okay with this and will take her self. documented in this encounter [facility] Progress note 01-13-2023 Note Date & Type Note Facility 01-13-2023 Note HNO ID: [id number] Author: Vivian Barrientos APRN.EXCELLENCE COACH Service: ? Author Type: Nurse Practitioner Type: Progress Notes Filed: 01/13/2023 8:28 AM Note Text: CC: Patient presents with: Cough: Cough, fever, chills and bodyaches x 10 days-much worse 2 days ago HPI: Mallory Escalante is a 32 year old female who presents to the office with complaint of cough, nonproductive, fever, and chills for 10 days. Symptoms are worsening Associated symptoms includes body aches. Denies dyspnea, nausea, vomiting , and diarrhea. Treatments tried include nothing so far. with no relief of symptoms. Sick contacts: unknown. History of asthma, frequent episodes of bronchitis, chronic bronchitis, bronchiectasis or COPD: No Smoker: No Seasonal/environmental allergies: No The ROS is otherwise negative. The patient's pmh, medications, allergies, and past visits are reviewed. PHYSICAL EXAM: BP 118/76 Pulse (!) 124 Temp 37.7 ?C (99.8 ?F) (Tympanic) Resp 18 Wt 99.7 kg (219 lb 12.8 oz) LMP 03/21/2016 SpO2 98% General appearance: alert, cooperative, pleasant, in no acute distress Head: Normocephalic Eyes: EOM's intact, conjunctiva pink and moist, no icterus, sclera white, non-injected Ears: Right ear: External ear/canal- Normal, TM - clear with good landmarks. Left ear: External ear/canal- Normal, TM - clear with good landmarks Oropharynx:moist without lesions, No erythema, exudates or tonsillar hypertrophy. Heart: Negative. RRR without obvious murmur, gallop, or rubs. No ectopy. Lungs: clear to auscultation, without rales or wheeze, good air exchange PAST MEDICAL HISTORY Diagnosis Date NEGATIVE MEDICAL HISTORY PAST SURGICAL HISTORY Procedure Laterality Date REM LESION TRUNK,ARM, LEG <0.5 CM Right 05/11/15 Exc. right breast lesion 9 Oclock ALLERGIES Morphine and Shellfish Containing Products MEDICATIONS doxycycline (VIBRA-TABS) 100 mg tablet Take 1 tablet by mouth two times a day for 7 days. predniSONE (DELTASONE) 20 mg tablet Take 2 tablets by mouth once daily for 5 days. benzonatate (TESSALON PERLES) 100 mg capsule Take 1 capsule by mouth three times a day as needed for up to 7 days. No family history on file. Social History Tobacco Use Smoking status: Never ASSESSMENT/PLAN: 1. Rhinosinusitis - ICD9: 473.9, ICD10: J32.9 - DOXYCYCLINE HYCLATE 100 MG TABLET - PREDNISONE 20 MG TABLET - BENZONATATE 100 MG CAPSULE Does not want an xray at this time. Prescription instructions reviewed with patient as applicable. Potential red flag symptoms discussed with the patient. Reviewed appropriate action plan to take if red flag symptoms occur. Patient agreeable to treatment plan. Vivian Barrientos APRN.[facility] History of Present illness Narrative 01-13-2023 Vivian Barrientos APRN.[facility] - 01/13/2023 8:24 AM EDT Note Date & Type Note Facility 01-13-2023 History of Presen t illness Narrative CC: Patient presents with: Cough: Cough, fever, chills and bodyaches x 10 days-much worse 2 days ago HPI: Mallory Escalante is a 32 year old female who presents to the office with complaint of cough, nonproductive, fever, and chills for 10 days. Symptoms are worsening Associated symptoms includes body aches. Denies dyspnea, nausea, vomiting , and diarrhea. Treatments tried include nothing so far. with no relief of symptoms. Sick contacts: unknown. History of asthma, frequent episodes of bronchitis, chronic bronchitis, bronchiectasis or COPD: No Smoker: No Seasonal/environmental allergies: No The ROS is otherwise negative. The patient's pmh, medications, allergies, and past visits are reviewed. PHYSICAL EXAM: BP 118/76 Pulse (!) 124 Temp 37.7 C (99.8 F) (Tympanic) Resp 18 Wt 99.7 kg (219 lb 12.8 oz) LMP 03/21/2016 SpO2 98% General appearance: alert, cooperative, pleasant, in no acute distress Head: Normocephalic Eyes: EOM's intact, conjunctiva pink and moist, no icterus, sclera white, non-injected Ears: Right ear: External ear/canal- Normal, TM - clear with good landmarks. Left ear: External ear/canal- Normal, TM - clear with good landmarks Oropharynx:moist without lesions, No erythema, exudates or tonsillar hypertrophy. Heart: Negative. RRR without obvious murmur, gallop, or rubs. No ectopy. Lungs: clear to auscultation, without rales or wheeze, good air exchange PAST MEDICAL HISTORY Diagnosis Date NEGATIVE MEDICAL HISTORY PAST SURGICAL HISTORY Procedure Laterality Date REM LESION TRUNK,ARM, LEG <0.5 CM Right 05/11/15 Exc. right breast lesion 9 Oclock ALLERGIES Morphine and Shellfish Containing Products MEDICATIONS doxycycline (VIBRA-TABS) 100 mg tablet Take 1 tablet by mouth two times a day for 7 days. predniSONE (DELTASONE) 20 mg tablet Take 2 tablets by mouth once daily for 5 days. benzonatate (TESSALON PERLES) 100 mg capsule Take 1 capsule by mouth three times a day as needed for up to 7 days. No family history on file. Social History Tobacco Use Smoking status: Never ASSESSMENT/PLAN: 1. Rhinosinusitis - ICD9: 473.9, ICD10: J32.9 - DOXYCYCLINE HYCLATE 100 MG TABLET - PREDNISONE 20 MG TABLET - BENZONATATE 100 MG CAPSULE Does not want an xray at this time. Prescription instructions reviewed with patient as applicable. Potential red flag symptoms discussed with the patient. Reviewed appropriate action plan to take if red flag symptoms occur. Patient agreeable to treatment plan. Vivian Barrientos APRN.[facility] documented in this encounter [facility] Progress note 05-03-2022 Note Date & Type Note Facility 05-03-2022 Note HNO ID: [id number] Author: Sergio Britton MD Service: ? Author Type: Physician Type: Progress Notes Filed: 05/03/2022 8:59 AM Note Text: Patient presents with: Sore Throat: X3 days HPI: Feeling sick for 3 days. Positive symptoms: Sore throat, Chills, Negative symptoms: Cough, Nasal Congestion, Rhinorrhea, Fever, Vomiting, Diarrhea, OTC: aleve PAST MEDICAL HISTORY Diagnosis Date NEGATIVE MEDICAL HISTORY PAST SURGICAL HISTORY Procedure Laterality Date REM LESION TRUNK,ARM, LEG <0.5 CM Right 05/11/15 Exc. right breast lesion 9 Oclock MEDICATIONS: No current outpatient medications on file. No current facility-administered medications for this visit. ALLERGIES: ALLERGIES Allergen Reactions Morphine Anaphylaxis Shellfish Containin* Hives VITALS: BP 110/76 Pulse 117 Temp 37.1 ?C (98.7 ?F) Resp 18 Wt 98.8 kg (217 lb 12.8 oz) LMP 03/21/2016 SpO2 98% PHYSICAL EXAM: GEN: mildly ill appearing HEENT: PERRL, EOMI, conjunctiva clear Ears: canals clear. TMs without erythema, bulge, or effusion Sinuses: non-tender frontal sinus, non-tender maxillary sinuses Throat: moist mucous membranes, pharyngeal erythema, left tonsil 2+/4, no exudate Neck: supple, no thyromegaly, tender anterior lymphadenopathy HEART: regular rate and rhythm, no murmurs LUNGS: clear to auscultation, no wheezes or crackles, no increased WOB ASSESSMENT/PLAN: 1. Streptococcal pharyngitis - ICD9: 034.0, ICD10: J02.0 (primary diagnosis) 2. Sore throat - ICD9: 462, ICD10: J02.9 - Discussed supportive care treatment with lozenges, gargles, and analgesia. - Contagious dz precautions discussed- including considered contagious until on antibiotics for 24 hours - STREP A MOLECULAR (POC) - positive - PENICILLIN V POTASSIUM 500 MG TABLET [place]x [place] [id number]. Follow up if tonsil worsens or fails to improve with antibiotic. Sergio Britton MD [facility] History of Present illness Narrative 05-03-2022 Sergio Britton MD - 05/03/2022 8:39 AM EST Note Date & Type Note Facility 05-03-2022 History of Presen t illness Narrative Patient presents with: Sore Throat: X3 days HPI: Feeling sick for 3 days. Positive symptoms: Sore throat, Chills, Negative symptoms: Cough, Nasal Congestion, Rhinorrhea, Fever, Vomiting, Diarrhea, OTC: aleve PAST MEDICAL HISTORY Diagnosis Date NEGATIVE MEDICAL HISTORY PAST SURGICAL HISTORY Procedure Laterality Date REM LESION TRUNK,ARM, LEG <0.5 CM Right 05/11/15 Exc. right breast lesion 9 Oclock MEDICATIONS: No current outpatient medications on file. No current facility-administered medications for this visit. ALLERGIES: ALLERGIES Allergen Reactions Morphine Anaphylaxis Shellfish Containin* Hives VITALS: BP 110/76 Pulse 117 Temp 37.1 C (98.7 F) Resp 18 Wt 98.8 kg (217 lb 12.8 oz) LMP 03/21/2016 SpO2 98% PHYSICAL EXAM: GEN: mildly ill appearing HEENT: PERRL, EOMI, conjunctiva clear Ears: canals clear. TMs without erythema, bulge, or effusion Sinuses: non-tender frontal sinus, non-tender maxillary sinuses Throat: moist mucous membranes, pharyngeal erythema, left tonsil 2+/4, no exudate Neck: supple, no thyromegaly, tender anterior lymphadenopathy HEART: regular rate and rhythm, no murmurs LUNGS: clear to auscultation, no wheezes or crackles, no increased WOB ASSESSMENT/PLAN: 1. Streptococcal pharyngitis - ICD9: 034.0, ICD10: J02.0 (primary diagnosis) 2. Sore throat - ICD9: 462, ICD10: J02.9 - Discussed supportive care treatment with lozenges, gargles, and analgesia. - Contagious dz precautions discussed- including considered contagious until on antibiotics for 24 hours - STREP A MOLECULAR (POC) - positive - PENICILLIN V POTASSIUM 500 MG TABLET Hx of recurrent streptococcal pharyngitis in [id number]. Follow up if tonsil worsens or fails to improve with antibiotic. Sergio Britton MD documented in this encounter [facility] Evaluation note Note Date & Type Note Facility documented in this encounter [facility] Evaluation note Note Date & Type Note Facility documented in this encounter [facility] Evaluation note Note Date & Type Note Facility documented in this encounter [facility] Summary Purpose Family History No Family History Records FoundNo Family History Records Found Advance Directives No Advanced Directives Records FoundNo Advanced Directives Records Found Additional Source Comments INFORMATION SOURCE (unrecogn ized section and content) DATE CREATED AUTHOR AUTHOR'S [place] ATION 01/18/2023 [facility] Source Comments (unrecognize d section and content) In the event this informatio n is protected by the Federal Confidentiality of Alcohol and Drug Abuse Patient Records regulations: The Federal rules restrict any use of the information to criminally investigate or prosecute any alcohol or drug abuse patient.[facility] the event this information is protected by the Federal Confidentiality of Alcohol and Drug Abuse Patient Records regulations: The Federal rules restrict any use of the information to criminally investigate or prosecute any alcohol or drug abuse patient.[facility] the event this information is protected by the Federal Confidentiality of Alcohol and Drug Abuse Patient Records regulations: The Federal rules restrict any use of the information to criminally investigate or prosecute any alcohol or drug abuse patient.[facility] Reason for Visit (unrecogniz ed section and content) Reason Comments Cough Cough, fever, chills and bodyaches x 10 days-much worse 2 days ago Reason Comments Fever High fever, dark uri ne, urine has odor x 1 day Care Teams (unrecognized sec tion and content) Embroiderer Hand Relationship Specialty Start Date End Date Chemo Kat MD PCP - General Family Medicine 05/02/15 Embroiderer Hand Relationship Specialty Start Date End Date Chemo Kat MD PCP - General Family Medicine 05/02/15 FOR RECORDS PERTAINING TO PATIENTS WHO ARE OR HAVE BEEN ENROLLED IN A CHEMICAL DEPENDENCY/SUBSTANCEABUSE PROGRAM, SOME INFORMATION MAY BE OMITTED. This clinical summary was aggregated from multiple sources. Caution should be exercised in using it in the provision of clinical care. This summary normalizes information from multiple sources, and as a consequence, information in this document may materially change the coding, format and clinical context of patient data. In addition, data may be omitted in some cases. CLINICAL DECISIONS SHOULD BE BASED ON THE PRIMARY CLINICAL RECORDS. [facility] [employer] provides no warranty or guarantee of the accuracy or completeness of information in this document.
[2023-06-18 13:04] VITALS: BP 108/56; PULSE 57; RESP 19; O2SAT 98
[2023-06-18 13:23] VITALS: BP 102/70; PULSE 71; RESP 14; TEMP 36.1; O2SAT 98
== END 2023-06-18 13:31 | disposition home or self-care (01) ==
PROVIDERS: Emergency Provider Emergency Medicine; Visit Provider Emergency Medicine
DX: N30.90 Cystitis, unspecified without hematuria (principal); R50.9 Fever, unspecified
CPT/HCPCS: 74176; 80053; 81001; 84703; 85025; 87086; 87088; 87186; 99282; J7030; A4216

== ENCOUNTER → 2024-01-31 | Outpatient (CLI) | payer OTHER, SELFPAY ==
[2024-01-31 17:37] LABS: Bacteria 0 SEEN /hpf (None Seen); Mucous, Urine 0 SEEN /hpf (<or=2+)
[2024-01-31 17:43] LABS: Color, Urine Yellow (Yellow); Glucose, Dipstick Normal (Normal); Ketone-Dipstick Negative (Negative); Leukocyte Esterase-Dipstick 100 /ul (Negative); Nitrite-Dipstick Negative (Negative); Occult Blood-Urine 150 /ul (Negative); Protein-Dipstick 15 mg/dl (Negative); Specific Gravity, Urine 1.005 (1.002-1.030); Urine Bilirubin Dipstick Negative (Negative); Urine Clarity Clear (Clear); Urine Urobilinogen Normal (Normal)
[2024-01-31 17:54] LABS: Squamous Epithelial Cells - UA 0-5 SEEN /hpf (5-10)
[2024-01-31 17:56] LABS: White Blood Cells 5-10 SEEN /hpf (0-5)
[2024-01-31 17:57] LABS: Red Blood Cells-Urine 5-10 SEEN /hpf (0-5)
== END | disposition home or self-care (01) ==
PROVIDERS: Referring Provider Physician Assistant; Visit Provider Physician Assistant
DX: R35.0 Frequency of micturition (principal)
CPT/HCPCS: 81001; 87086; 87088; 87186

== ENCOUNTER → 2024-11-17 | Outpatient (CLI) | payer OTHER, SELFPAY | END | disposition home or self-care (01) | LOC: LABSPEC 15:58 | PROVIDERS: Visit Provider Nurse Practitioner Women's Health | DX: N89.8 Other specified noninflammatory disorders of vagina (principal) | CPT/HCPCS: 87070; 87205 ==